=== PATIENT | female | born 1955 | race Caucasian/White ===

== ENCOUNTER 2020-08-31 00:21 | Outpatient (CLI) | payer OTHER, SELFPAY ==
[2020-08-31 19:18] LABS: SARS-CoV-2 RNA PCR Negative
== END 2020-08-31 00:22 | disposition home or self-care (01) ==
LOC: ANHCOVIDDT 00:21
PROVIDERS: Family Provider Family Medicine; PCP Family Medicine; Visit Provider Internal Medicine Gastroenterology
DX: Z01.812 Encounter for preprocedural laboratory examination (principal); Z20.822 Contact with and (suspected) exposure to COVID-19
CPT/HCPCS: C9803; U0003; U0005

== ENCOUNTER 2020-09-03 01:56 | Day surgery (SDC) | payer OTHER, SELFPAY ==
[2020-08-24 10:51] VITALS: BMI 26.9
[2020-09-03 10:14] VITALS: BP 147/94; PULSE 86; RESP 18; TEMP 36.5; O2SAT 99; BMI 28.0
[2020-09-03] MEDS: LACTATED RINGERS 1,000 ML 150 ML IV CONT (10:24)
--- NOTE | 2020-09-03 10:58 | WPDANESEPPF ---
Anes - Initial Pre Proc Eval Procedure: Operation Date: 09/03/20 11:30 Proposed Procedures p Screening Colonoscopy - Oscar Orr MD Date/Time: 09/03/20 10:58 Surgeon: Oscar Orr MD Pre Op Diagnosis: neoplasm screening Patient Data Age: 65 Gender: F Height: 5 ft 3 in Weight: 72 kg Last Vital Signs Temp 97.7 F 09/03/20 10:14 Pulse 86 09/03/20 10:14 Resp 18 09/03/20 10:14 BP 147/94 H 09/03/20 10:14 Pulse Ox 99 09/03/20 10:14 Allergies Allergy/AdvReac Type Severity Reaction Status Date / Time No Known Allergies Allergy Verified 09/03/20 10:14 Home Medications Medication Instructions Recorded Confirmed Type sodium,potassium,mag sulfates See Rx Instructions .ROUTE 08/20/20 Rx [Suprep Bowel Prep Kit] .COMPLEX #1 ml losartan 100 mg PO DAILY 08/24/20 09/03/20 History Patient hx anesthesia problems: none Family hx anesthesia problems: none [facility] Past Medical History Medical History (Updated 09/03/20 @ 10:52 by Hilton Barroso MD) Hypertension Social History Social History Smoking packs per day: 1 Smoking cigarettes per day: 20.0 Years smoked: 47 Smoking pack-years: 47.00 Smoking status: Current every day smoker Tobacco type: cigarettes Alcohol intake: never Living arrangements: with family Spiritual care concerns: No Anes - Eval Final PreProcedure Day of Procedure 09/03/20 10:58 Patient weight: normal Heart: regular rate and rhythm Lungs: clear to auscultation Airway: Mallampati scale class II Neurological: alert and oriented Last oral intake: >/= 8 hours ASA classification: II Emergent: no Anesthetic plan: proceed Anesthesia type and monitoring: general GIVS and standard monitoring Informed Consent: The patient's anesthetic plan and its attendant risks and benefits were discussed with the patient/family/POA. Questions were solicited and answers provided to the satisfaction of the patient/family/POA.
--- NOTE | 2020-09-03 10:59 | PM.HPGS ---
History of Present Illness History of Present Illness Consent: Risks, benefits, and alternatives have been discussed and questions answered. Patient agrees to proceed with procedure. Chief complaint: neoplasm screening Narrative: Analisa Sinclair is a 65 year old female here for first screening colonoscopy Review of Systems Constitutional: Constitutional: Denies headache(s) and Denies weakness Eyes: Eyes: Denies blurry vision ENT: Reports Normal hearing present, Denies headache(s) and Denies neck pain Cardiovascular: Cardiovascular: Denies chest pain and Denies dyspnea Respiratory: Respiratory: Denies dyspnea Gastrointestinal: Gastrointestinal: Reports no additional gastrointestinal complaints Genitourinary: Genitourinary: Denies dysuria Musculoskeletal: Musculoskeletal: Denies neck pain Integumentary/Breasts: Skin/Breast: Denies dry skin Neurologic: Reports Normal hearing present, Denies headache(s) and Denies weakness Psychiatric: Psychiatric: Denies anxiety Endocrine: Endocrine: Denies change in body appearance Hematologic/Lymphatic: Hematologic/Lymphatic: Denies easy bleeding Allergic/Immunologic: Allergic/Immunologic: Denies urticaria COUNTS INCLUDE 234 BEDS AT [facility] Past Medical History Medical History (Updated 09/03/20 @ 11:00 by Oscar Orr MD) Colon cancer screening Hypertension Social History Social History Smoking packs per day: 1 Smoking cigarettes per day: 20.0 Years smoked: 47 Smoking pack-years: 47.00 Smoking status: Current every day smoker Tobacco type: cigarettes Alcohol intake: never Living arrangements: with family Spiritual care concerns: No Meds Home Medications and Allergies Home Medications Medication Instructions Recorded Confirmed Type sodium,potassium,mag sulfates See Rx Instructions .ROUTE 08/20/20 Rx [Suprep Bowel Prep Kit] .COMPLEX #1 ml losartan 100 mg PO DAILY 08/24/20 09/03/20 History Allergies Allergy/AdvReac Type Severity Reaction Status Date / Time No Known Allergies Allergy Verified 09/03/20 10:14 Vital Signs Vital Signs - 24 hr 09/03/20 10:14 Temperature 97.7 F Pulse Rate 86 Respiratory Rate 18 Blood Pressure 147/94 H Pulse Oximetry 99 Exam Const: General: comfortable and no acute distress HENMT: General nose exam: Normal nares present Eyes: General: appearance normal, both eyes and all related structures Neck: Neck: no JVD Resp: Auscultation: clear to auscultation bilaterally Cardio: Rate: regular rate Rhythm: regular rhythm GI: Inspection: non-distended GI Palp: Yes Soft to palpation Skin: General skin exam: normal color Neuro: General: gait normal Speech: normal speech Extrem: General: normal to inspection Psych: Mental Status: mental status grossly normal Assessment and Plan Assessment and plan (1) Colon cancer screening: Code(s): Z12.11 - Encounter for screening for malignant neoplasm of colon Status: Acute Assessment and Plan: will proceed with colonoscopy
[2020-09-03 11:23] VITALS: BP 111/71; PULSE 71; RESP 26; O2SAT 97
[2020-09-03 11:33] VITALS: BP 129/84; PULSE 71; RESP 22; O2SAT 95
[2020-09-03 11:43] VITALS: BP 135/82; PULSE 68; RESP 21; O2SAT 99
== END 2020-09-03 11:50 | disposition home or self-care (01) ==
PROVIDERS: Family Provider Family Medicine; PCP Family Medicine; Visit Provider Internal Medicine Gastroenterology
PROC: 0DJD8ZZ Inspection of Lower Intestinal Tract, Via Natural or Artificial Opening Endoscopic (ICD-10-PCS; CPT 45378; principal; 2020-09-03 11:30)
DX: Z12.11 Encounter for screening for malignant neoplasm of colon (principal); D12.0 Benign neoplasm of cecum; D12.3 Benign neoplasm of transverse colon; K57.30 Diverticulosis of large intestine without perforation or abscess without bleeding; K64.8 Other hemorrhoids; I10 Essential (primary) hypertension; F17.210 Nicotine dependence, cigarettes, uncomplicated
CPT/HCPCS: 45380; 45385; 88305; C9803; J2704; J7120; U0003; U0005

== ENCOUNTER 2022-07-09 16:32 | Emergency (ER) | payer MEDICARE, SELFPAY ==
[2022-07-09 17:22] VITALS: BP 183/98; PULSE 86; RESP 18; TEMP 36.6; O2SAT 100
--- NOTE | 2022-07-09 17:35 | ED.URI ---
HPI - URI/Sore Throat General Stated Complaint: Headache,Ears Irritation, Cough Time Seen by Provider: 07/09/22 17:35 Source: patient Mode of arrival: ambulatory Limitations: no limitations History of Present Illness HPI Narrative: 67-year-old female presents with complaint of sinus congestion, cough for several weeks. Reports that she is now having right ear pain. Takes Eun on when she remembers. Is not taking any other medications right now to treat symptoms. Afebrile. Denies chest pain and shortness of breath. All systems reviewed and negative except as noted above. Related Data Home Medications Medication Instructions Recorded Confirmed losartan 100 mg tablet 100 mg PO DAILY 08/24/20 09/19/21 Allergies Allergy/AdvReac Type Severity Reaction Status Date / Time No Known Allergies Allergy Verified 09/19/21 14:31 Review of Systems Review of Systems: CONSTITUTIONAL: Denies fever, chills, or sweats. EYES: Denies visual changes, redness, or discharge. ENT: Reports rhinorrhea, congestion, sore throat, right ear pain. CARDIOVASCULAR: Denies chest pain, palpitations, or edema. RESPIRATORY: Reports cough. Denies dyspnea. GASTROINTESTINAL: Denies abdominal pain, nausea, vomiting, or diarrhea. GENITOURINARY: Denies dysuria or hematuria. SKIN: Denies rash or itching. MUSCULOSKELETAL: Denies back pain, joint pain, or myalgia. NEUROLOGIC: Denies headache, numbness, or weakness. PSYCHIATRIC: Denies anxiety or depression. All other systems reviewed are negative, except as documented in HPI. [facility] Past Medical History Medical History Colon cancer screening Hypertension Family History Family History Father Diabetes mellitus Hypertension Heart disease Social History Social History Smoking packs per day: 1 Smoking cigarettes per day: 20.0 Years smoked: 47 Smoking pack-years: 47.00 Smoking status: Current every day smoker Tobacco type: cigarettes Alcohol intake: never Substance use: never Substance use type: does not use Spiritual care concerns: No Comments At time of signature, agree with nursing past medical, surgical, social and family history. There is no relevant family history pertinent to the presenting complaint. Exam Narrative: GENERAL: This is a well-nourished, well-developed patient, in no apparent distress. HEAD: normocephalic, atraumatic. EYES: PERRL. Sclera clear/white. Vision is grossly intact. EARS: External ears normal, auditory canals clear and without drainage, right TM is erythematous, yellow purulence noted. NOSE: External nose normal with Clear nasal drainage. THROAT: Mucous membranes moist, posterior pharynx clear. NECK: Neck supple, non-tender without lymphadenopathy, masses or thyromegaly. CARDIOVASCULAR: Regular rate and rhythm without murmurs, gallops, or rubs. RESPIRATORY: Clear to auscultation. Breath sounds equal bilaterally. No wheezes, rales, or rhonchi. SKIN: warm, Dry, intact with no suspicious lesions or rash, good texture and turgor. NEURO: awake, alert, and oriented to person, place and time. There were no obvious focal neurologic abnormalities. EXTREMITIES: No joint tenderness, effusion, or edema noted. Course Course Level of Care: Express Care Visit Vital Signs Vital signs: Reviewed MDM - URI/Sore Throat MDM Narrative Medical decision making narrative: Patient is aware of diagnosis, understands and agrees to treatment plan. Anticipatory guidance given. Patient agrees to follow-up as directed and is aware of reasons to seek care at the emergency department. Portions of this record may have been created with voice recognition software Discharge Plan Discharge Clinical Impression: Acute bronchitis, Acute otitis media, right Patient Disposi
== END 2022-07-09 17:51 | disposition home or self-care (01) ==
PROVIDERS: Emergency Provider Nurse Practitioner Family
DX: J20.9 Acute bronchitis, unspecified (principal); H66.91 Otitis media, unspecified, right ear; F17.210 Nicotine dependence, cigarettes, uncomplicated; I10 Essential (primary) hypertension
CPT/HCPCS: 99213; G0463

== ENCOUNTER 2022-10-18 07:41 | Outpatient (CLI) | payer MEDICARE, SELFPAY ==
[2022-10-18 08:44] LABS: Basophils Percent Auto 0.7 % (0.2-1.2); Eosinophils Absolute Auto 0.1 K/mm3 (0-0.3); Eosinophils Percent Auto 0.8 % (0-4.4); Hematocrit 39.8 % (37.0-47.0); Hemoglobin 13.9 g/dL (12.0-15.0); Immature Granulocyte Absolute 0.02 K/mm3 (0.00-0.031); Immature Granulocyte Percent A 0.3 % (0-0.5); Lymphocytes Absolute Auto 1.64 K/mm3 (0.9-3.2); Lymphocytes Percent Auto 27.3 % (18.3-44.2); Mean Corpuscular HGB Conc 34.9 g/dl (32-36); Mean Corpuscular Hemoglobin 31.2 pg (26-34); Mean Corpuscular Volume 89.4 fl (80-100); Mean Platelet Volume 8.8 fl (7.4-10.4); Monocytes Absolute Auto 0.3 K/mm3 (0.1-0.6); Monocytes Percent Auto 5.7 % (2.6-8.5); Neutrophils Absolute Auto 3.9 K/mm3 (1.3-6.7); Neutrophils Percent Auto 65.2 % (45.5-73.1); Platelet Count Result 276 k/mm3 (150-375); Red Blood Count 4.45 M/mm3 (4.2-5.4); Red Cell Distribution Width 12.5 % (11.5-14.5)
[2022-10-18 09:13] LABS: Anion Gap 8 mmol/L (8-16); Blood Urea Nitrogen 13 mg/dL (7-17); Calcium 9.6 mg/dL (8.4-10.2); Carbon Dioxide 23 mmol/L (22-30); Chloride 107 mmol/L (98-107); Cholesterol 258 mg/dL (0-200); Estimated Glomerular Filt Rate > 60; Glucose 96 mg/dL (65-110); HDL Direct 70 mg/dL; Sodium 138 mmol/L (137-145); Triglycerides 93 mg/dL (<150)
[2022-10-18 09:24] LABS: LDL Cholesterol Direct 148 mg/dL
== END 2022-10-18 07:42 | disposition home or self-care (01) ==
PROVIDERS: Visit Provider Family Medicine
DX: Z00.00 Encounter for general adult medical examination without abnormal findings (principal); Z13.1 Encounter for screening for diabetes mellitus; Z13.220 Encounter for screening for lipoid disorders; I10 Essential (primary) hypertension; E55.9 Vitamin D deficiency, unspecified; R53.83 Other fatigue
CPT/HCPCS: 36415; 80048; 80061; 82306; 84443; 85025

== ENCOUNTER 2022-10-23 15:26 | Outpatient (CLI) | payer MEDICARE, SELFPAY ==
--- NOTE | ~2022-10-23 | CT_ITS ---
EXAMINATION:CT lung screening DATE: 10/23/2022 15:54 INDICATION: Nicotine dependence. Current smoker with 24.5 pack year history. TECHNIQUE: Computed tomography (CT) of the chest was performed without intravenous contrast. Automate d exposure control and iterative reconstruction technique were employed. The dose-length product (DLP ) was 98.70 mGy-cm. COMPARISON: None. FINDINGS: There is mild emphysema. There is a 2 mm nodule in right upper lobe. There is a 2 mm nodule in left upper lobe. There is mild atelectasis bilaterally. No pleural effusion. The heart size is no rmal. No pericardial effusion. There is severe thoracic spondylosis. IMPRESSION: 1. Lung-RADS category 2: Benign appearance or behavior. Continue annual screening with noncontrast lo w-dose chest CT in 12 months. Reviewed, dictated and finalized at location A. IMPRESSION: 1. Lung-RADS category 2: Benign appearance or behavior. Continue annual screeni ng with noncontrast low-dose chest CT in 12 months.
== END 2022-10-23 15:27 | disposition home or self-care (01) ==
PROVIDERS: PCP Family Medicine; Visit Provider Family Medicine
DX: F17.210 Nicotine dependence, cigarettes, uncomplicated (principal)
CPT/HCPCS: 71271

== ENCOUNTER 2023-07-09 09:43 | Emergency (ER) | payer MEDICARE, SELFPAY ==
[2023-07-09 09:56] VITALS: BP 154/83; PULSE 83; RESP 18; TEMP 36.7; O2SAT 99
--- NOTE | 2023-07-09 10:20 | ED.URI ---
HPI - URI/Sore Throat General Chief Complaint: Upper Respiratory Infection Stated Complaint: bilateral ear discomfort,cough,congestion Time Seen by Provider: 07/09/23 09:46 Source: patient Mode of arrival: ambulatory Limitations: no limitations History of Present Illness HPI Narrative: 68-year-old female presents to [facility] with complaints of bilateral ear pain and pressure, nonproductive cough, sinus pressure and nasal congestion for the past 4 weeks. Patient has been taking [id number] cough medication, Flonase and Eun with minimal relief. Patient reports that her has similar symptoms and was recently diagnosed with bronchitis. Patient denies shortness of breath, wheezing, nausea, vomiting or diarrhea. Patient is a smoker. Patient denies recent travel. MD elicited complaint: cough, rhinorrhea and nasal congestion Onset (ago): week(s) (4) Context: sick contacts Treatments prior to arrival: cold medicine Related Data Home Medications Medication Instructions Recorded Confirmed losartan 100 mg tablet 100 mg PO DAILY 08/24/20 07/09/23 Allergies Allergy/AdvReac Type Severity Reaction Status Date / Time No Known Allergies Allergy Verified 07/09/23 09:58 Review of Systems Constitutional: Constitutional: Denies chills, Denies fatigue, Denies fever(s) and Denies weakness ENT: Denies vertigo, Denies dizziness, Reports nasal congestion and Denies sore throat Respiratory: Respiratory: Denies chest congestion, Reports cough, Denies dyspnea and Denies wheezing Gastrointestinal: Gastrointestinal: Denies diarrhea, Denies nausea and Denies vomiting Integumentary/Breasts: Skin/Breast: Denies rash Neurologic: Denies dizziness, Denies syncope and Denies headache(s) [facility] Past Medical History Medical History Colon cancer screening Hypertension Family History Family History Father Diabetes mellitus Hypertension Heart disease Social History Social History Smoking packs per day: 1 Smoking cigarettes per day: 20.0 Years smoked: 47 Smoking pack-years: 47.00 Smoking status: Current every day smoker Tobacco type: cigarettes Alcohol intake: never Substance use: never Substance use type: does not use Living arrangements: with family Spiritual care concerns: No Comments At time of signature, I agree with nursing past medical, surgical, social and family history. There is no relevant family history pertinent to the presenting complaint. Exam Const: General: healthy appearing and no acute distress Nutritional Appearance: well nourished Orientation/consciousness: patient oriented x3 Limitations: no limitations HENMT: Head: normal to inspection Ears: external ears normal, EAC's normal and TM abnormal wth effusion serous Mouth: Yes Normal oral and palatal mucosa present and Yes moist mucous membranes Teeth and gingiva: dentition normal Throat: posterior oropharynx normal and uvula midline Other: Mild bilateral nasal congestion noted Eyes: Conjunctivae: conjunctivae normal Neck: Neck: normal visual inspection Resp: Effort & Inspection: normal respiratory effort and not labored Auscultation: clear to auscultation bilaterally, no crackles, no rales, no rhonchi and no wheezes Cardio: Rate: regular rate Rhythm: regular rhythm Heart sounds: no murmurs Skin: General skin exam: normal color Rashes: no rashes Wounds: no wounds Neuro: General: patient oriented x3 Speech: normal speech Gait exam (Neuro): Normal gait present Psych: Affect: normal affect Attitude: cooperative Course Course Level of Care: Express Care Visit Vital Signs Vital signs: Vital Signs Temperature 36.7 C 07/09/23 09:56 Pulse Rate 83 07/09/23 09:56 Respiratory Rate 18 07/09/23 09:56 Blood Pressure 154/83 H
== END 2023-07-09 10:26 | disposition home or self-care (01) ==
PROVIDERS: Emergency Provider Nurse Practitioner Family; PCP Family Medicine
DX: J32.9 Chronic sinusitis, unspecified (principal); I10 Essential (primary) hypertension
CPT/HCPCS: 99213; G0463

== ENCOUNTER 2023-11-22 13:18 | Outpatient (CLI) | payer MEDICARE, SELFPAY ==
--- NOTE | ~2023-11-22 | MM_ITS ---
EXAMINATION: MM screening xiang BI w ian HISTORY: Screening mammogram TECHNIQUE: Craniocaudal and mediolateral oblique 3-D tomosynthesis images were obtained and synthetic 2-D images were generated. CAD analysis was submitted and interpreted. COMPARISON: No prior mammogram is available for comparison at this institution. BREAST PARENCHYMAL COMPOSITION: There are scattered areas of fibroglandular density. FINDINGS: There is no evidence of suspicious mass, calcification, or architectural distortion to sugg est malignancy in either breast. There has been no suspicious interval change. IMPRESSION: 1. No mammographic evidence of malignancy. 2. Recommend routine screening mammography in one year. BI-RADS Category 1: Negative Reviewed, dictated and finalized at location A.
== END 2023-11-22 13:19 ==
LOC: MICIMG 13:19
PROVIDERS: PCP Family Medicine; Visit Provider Family Medicine
DX: Z12.31 Encounter for screening mammogram for malignant neoplasm of breast (principal)
CPT/HCPCS: 77063; 77067

== ENCOUNTER 2023-11-23 09:31 | Outpatient (CLI) | payer MEDICARE, SELFPAY ==
--- NOTE | ~2023-11-23 | CT_ITS ---
CT Scan of the Chest without Contrast: Clinical Indication: Lung cancer screening, nicotine dependence Technique: Contiguous sections were acquired throughout the chest without intravenous contrast. Dose reduction technique was used on this scan by utilizing automated exposure control and iterative recon struction technique. The dose-length product (DLP) was 88.89 mGy-cm. COMPARISON: 10/23/2022 Findings: There is no evidence of any significant mediastinal, hilar or axillary lymphadenopathy. The mediastin al soft tissues appear normal. There is no evidence of pleural or pericardial effusion. The lungs are clear. No pulmonary nodules or infiltrates are noted. Images through the upper abdomen reveal no abnormalities. Impression: Lung RADS 1: Negative. 12 month follow-up screening CT advised. Reviewed, dictated and finalized at location . Impression: Lung RADS 1: Negative. 12 month follow-up screening CT advised.
== END 2023-11-23 09:32 | disposition home or self-care (01) ==
PROVIDERS: PCP Family Medicine; Visit Provider Family Medicine
DX: Z12.2 Encounter for screening for malignant neoplasm of respiratory organs (principal); Z87.891 Personal history of nicotine dependence
CPT/HCPCS: 71271

== ENCOUNTER 2024-11-24 13:00 | Outpatient (CLI) | payer MEDICARE, SELFPAY ==
--- NOTE | ~2024-11-24 | CT_ITS ---
CT Scan of the Chest without Contrast: Clinical Indication: Lung cancer screening, nicotine dependence Technique: Contiguous sections were acquired throughout the chest without intravenous contrast. Dose reduction technique was used on this scan by utilizing automated exposure control and iterative recon struction technique. The dose-length product (DLP) was 100.99 mGy-cm. COMPARISON: 11/23/2023 Findings: There is no evidence of any significant mediastinal, hilar or axillary lymphadenopathy. The mediastin al soft tissues appear normal. There is no evidence of pleural or pericardial effusion. No pulmonary nodule evident. There is linear scarring in the lingula. Minimal emphysema. Images through the upper abdomen reveal no abnormalities. Degenerative spondylosis of the thoracic sp ine noted. Impression: Lung RADS 1: Negative. 12 month follow-up screening CT advised. Reviewed, dictated and finalized at [facility]. Impression: Lung RADS 1: Negative. 12 month follow-up screening CT advised.
--- OUTSIDE RECORDS SUMMARY | 2024-11-24 14:41 | XMS_ITS | Encounter Summary ---
Author Organization [facility] Address [address] [place] [address] Care Team Providers Care Manager Environmental Affairs Name Role Phone Unavailable Primary Care Provider Unavailabl e Encounter Details Date Type Department Care Team (Late st Contact Info) Description 10/14/2008 Outpatient Historical [facility] Other Screening Mammogram Social History Tobacco Use Types Packs/Day Years Used Date Smoking Tobacco: Never Assessed Comments Unknown Sex and Gender Information Value Date Recorded Sex Assigned at Not on file Legal Sex Female 5:43 AM [employer] Gender Identity Not on file Sexual Orientation Not on file documented as of this encounter Plan of Treatment Not on file documented as of this encounter Procedures Procedure Name Priority Date/Time Associated Diagnosis Comments MAMMO SCREENING BILAT Routine 10/14/2008 1:26 PM CDT documented in this encounter Results * MAMMO SCREENING BILAT (10/14/2008 1:26 PM CDT) Anatomical Region Laterality Modality Breast Bilateral Other 10/14/2008 1:26 PM CDT Narrative 10/16/2008 8:37 AM CDT [address] [address] Admit Date: 10/14/2008 ANALISA SINCLAIR Sex: F Admit Prov: Date: 1955 Primary Care Prov: CMRN: [id number] [facility] [address] [place] [address] IMAGING SERVICES Ordering Prov: CHAU CHUNG Accession Number: [id number] Interpretation BILATERAL SCREENING MAMMOGRAM 10/14/08 Reason for this examination: Annual screening study. Findings: The parenchyma is moderately dense bilaterally. There is no mass, malignant calcification, lymphadenopathy or other sign of malignancy. Summary: No mammographic evidence of malignancy. Overall assessment: BIRADS category 1 - Negative Assessment BIRADS: 1-Negative Recommendation: Normal interval follow-up Dictated by: MARC OLSEN Electronically signed by: MARC OLSEN 10/16/2008 08:36 Transcribed: 10/16/2008 07:26 AMK Procedure Note Marc Olsen MD - 10/16/2008 [facility] [address], [place] [address] Admit Date: 10/14/2008 ANALISA SINCLAIR Sex: F Admit Prov: Date: 1955 Primary Care Prov: CMRN: [id number] [facility] SSN: [id number] IMAGING SERVICES Ordering Prov: CHAU CHUNG Interpretation BILATERAL SCREENING MAMMOGRAM 10/14/08 Reason for this examination: Annual screening study. Findings: The parenchyma is moderately dense bilaterally. There isno mass, malignant calcification, lymphadenopathy or other sign ofmalignancy. Summary: No mammographic evidence of malignancy. Overall assessment: BIRADS category 1 - Negative Assessment BIRADS: 1-Negative Recommendation: Normal interval follow-up Dictated by: MARC OLSEN Electronically signed by: MARC OLSEN 10/16/2008 08:36 Transcribed: 10/16/2008 07:26 [facility]K [facility] Final Result documented in this encounter Visit Diagnoses Diagnosis Other screening mammogram documented in this encounter
--- OUTSIDE RECORDS SUMMARY | 2024-11-24 14:41 | XMS_ITS | Data Portability ---
Author Organization [facility], Main Office Address [address] [place] [address] Assessment No assessment recorded. Plan of Treatment Reminders Order Date Submit Date Provider Last Modified By Organization Details Last Modified Time Details Appointments None recorded. Lab magnesium, serum or plasma [email or web address] (Lab), [address] [place], [address], 4 07:56:41 CMP, serum or plasma 2023 024 [facility] (Lab), [address] [place], [address], 4 21:25:29 lipid panel, serum 2023 024 YASSINE Not available 4 20:56:45 hepatic function panel, serum 2023 YASSINE Not available 4 20:56:50 BMP, serum or plasma 2023 024 YASSINE Not available 4 20:56:40 vitamin D3, 25-hydroxy, serum 2023 YASSINE Not available 4 10:20:40 CBC w/ auto diff 2023 024 YASSINE Not available 4 19:45:20 TSH, serum or plasma 2023 024 YASSINE Not available 4 21:20:04 T4, free, serum 2023 WABASSO Not available 21:09:56 Referral None recorded. Procedures None recorded. Surgeries None recorded. Imaging LDCT, chest, for lung cancer screening - *Please call pt to schedule* 2023 024 [facility] (Imaging), [address] [facility] [address] [place] [address], [phone], 4 12:30:47 DEXA - *Please call pt to schedule* [email or web address] [place] [address] (Imaging), [address] [facility] [address], [place], [address], 4 09:52:09 Medication Orders prednisone 20 mg tablet 2023 [facility] #[id number], [address] [facility], [place], [place], [id number], 4 11:04:14 amoxicillin 875 mg-potassiu m clavulanate 125 mg tablet 2023 024 [facility] #73200, [address] [facility], [place], [place], [id number], 4 11:04:13 losartan 100 mg-hydrochl orothiazide 25 mg tablet 2023 [facility] #82988, [address] [facility], [place], [place], [id number], 4 16:16:17 Patient TargetsNo targets recorded. Patient Instructions Encounter Date Encounter Id Patient Instructions Last Modified By Organization Details Last Modified Time 11/13/2023 [id number] [facility] Plan and Screening Recommendations Advance Directives - Do you have one? Advance Directives - Do we have your advance directive on file in your health record? Primary Prevention/Interven tion (prevents or decreases the chance of common diseases from occurring) Smoking Risk: Alcohol Misuse Screening: Weight: Physical activity: Nutrition: Fall Risk (screened today): Vaccines Pneumococcal: Influenza: Your next one in the fall of this year Chronic Disease Risks Stroke: I have no recommendations Act ced diagnosis, Continue current treatment plan Heart Attack: I have no recommendations Act ced diagnosis, Continue current treatment plan Clogging of the Arteries: I have no recommendations Act ecd diagnosis, Continue current treatment plan Diabetes: Active diagnosis, Continue current treatment plan Secondary Prevention/Interven tion (detects treatable diseases before they may cause symptoms, disability, or ) Breast Cancer Screening with mammogram: Cervical/Uterine/Ov tolu Cancer Screening: Osteoporosis Screening: Date Screening Last Performed: Colon Cancer Screening: Date Screening Last Performed: Eye Disease Screening: Dementia Risk: Depression Screening: Active diagnosis, Continue current treatment plan Not available 11/13/2023 11:41:56 Reason for Referral None Reported. Results Created Date Observation Date Name Description Value Unit Range Abnormal Flag Note LastModifiedBy Organization Detail LastModifiedTime 11/13/19 24 11/13/2023 CBC/C OMPLE TE BLD COUNT W/DIF F white blood cells 6.8 x10'3 /uL 4.2-10 .8 Not Available [facility] (Lab) [address] [place], [address], 11/13/2023 19:45:20 11/13/19 24 11/13/2023 CBC/C OMPLE TE BLD COUNT W/DIF F red blood cells 4.52 x10'6 /uL 3.80-5 .20 Not Available [facility] (Lab) [address] [place], [address], 11/13/2023 19:45:20 11/13/19 24 11/13/2023 CBC/C OMPLE TE BLD COUNT W/DIF F hemoglobin 14.3 g/dL 12.0-1 5.6 Not Available [facility] (Lab) [address] [place], [address], 11/13/2023 19:45:20 11/13/19 24 11/13/2023 CBC/C OMPLE TE BLD COUNT W/DIF F hematocrit 42.2 % 35.7-4 5.7 Not Available [facility] (Lab) [address] [place], [address], 11/13/2023 19:45:20 11/13/19 24 11/13/2023 CBC/C OMPLE TE BLD COUNT W/DIF F mean red cell volume 93.4 fL 82.0-9 9.0 Not Available [facility] (Lab) [address] [place], [address], 11/13/2023 19:45:20 11/13/19 24 11/13/2023 CBC/C OMPLE TE BLD COUNT W/DIF F mean red cell hemoglobin 31.6 pg 27.0-3 3.0 Not Available [facility] (Lab) [address] [place], [address], 11/13/2023 19:45:20 11/13/19 24 11/13/2023 CBC/C OMPLE TE BLD COUNT W/DIF F mean RBC HGB concentratio n 33.9 g/dL 31.0-3 6.0 Not Available [facility] (Lab) [address] [place], [address], 11/13/2023 19:45:20 11/13/19 24 11/13/2023 CBC/C OMPLE TE BLD COUNT W/DIF F red cell distribution width 12.8 % 11.8-1 5.5 Not Available [facility] (Lab) [address] [place], [address], 11/13/2023 19:45:20 11/13/19 24 11/13/2023 CBC/C OMPLE TE BLD COUNT W/DIF F platelets 310 x10'3 /uL 150-40 0 Not Available [facility] (Lab) [address] [place], [address], 11/13/2023 19:45:20 11/13/19 24 11/13/2023 CBC/C OMPLE TE BLD COUNT W/DIF F mean platelet volume 9.5 fL 9.0-12 .4 Not Available [facility] (Lab) [address] [place], [address], 11/13/2023 19:45:20 11/13/19 24 11/13/2023 CBC/C OMPLE TE BLD COUNT W/DIF F neutrophils 64.8 % 39.0-7 2.0 Not Available [facility] (Lab) [address] [place], [address], 11/13/2023 19:45:20 11/13/19 24 11/13/2023 CBC/C OMPLE TE BLD COUNT W/DIF F lymphocytes 27.5 % 16.0-4 7.0 Not Available [facility] (Lab) [address] [place], [address], 11/13/2023 19:45:20 11/13/19 24 11/13/2023 CBC/C OMPLE TE BLD COUNT W/DIF F monocytes 5.5 % 5.0-12 .0 Not Available [facility] (Lab) [address] [place], [address], 11/13/2023 19:45:20 11/13/19 24 11/13/2023 CBC/C OMPLE TE BLD COUNT W/DIF F eosinophils 1.2 % 1.0-7. 0 Not Available [facility] (Lab) [address] [place], [address], 11/13/2023 19:45:20 11/13/19 24 11/13/2023 CBC/C OMPLE TE BLD COUNT W/DIF F basophils 0.6 % 0.0-2. 0 Not Available [facility] (Lab) [address] [place], [address], 11/13/2023 19:45:20 11/13/19 24 11/13/2023 CBC/C OMPLE TE BLD COUNT W/DIF F immature granulocytes 0.4 % 0.00-0 .50 Not Available [facility] (Lab) [address] [place], [address], 11/13/2023 19:45:20 11/13/19 24 11/13/2023 CBC/C OMPLE TE BLD COUNT W/DIF F neutrophils, absolute count 4.39 x10'3 /uL 1.5-8. 0 Not Available [facility] (Lab) [address] [place], [address], 11/13/2023 19:45:20 11/13/19 24 11/13/2023 CBC/C OMPLE TE BLD COUNT W/DIF F lymphocytes, absolute count 1.86 x10'3 /uL 1.07-3 .43 Not Available [facility] (Lab) [address] [place], [address], 11/13/2023 19:45:20 11/13/19 24 11/13/2023 CBC/C OMPLE TE BLD COUNT W/DIF F monocytes, absolute count 0.37 x10'3 /uL 0.29-0 .99 Not Available [facility] (Lab) [address] [place], [address], 11/13/2023 19:45:20 11/13/19 24 11/13/2023 CBC/C OMPLE TE BLD COUNT W/DIF F eosinophils, absolute count 0.08 x10'3 /uL 0.02-0 .53 Not Available [facility] (Lab) [address] [place], [address], 11/13/2023 19:45:20 11/13/19 24 11/13/2023 CBC/C OMPLE TE BLD COUNT W/DIF F basophils, absolute count 0.04 x10'3 /uL 0.01-0 .08 Not Available [facility] (Lab) [address] [place], [address], 11/13/2023 19:45:20 11/13/19 24 11/13/2023 CBC/C OMPLE TE BLD COUNT W/DIF F immature granulocytes ,absolute 0.03 x10'3 /uL 0.00-0 .05 Not Available [facility] (Lab) [address] [place], [address], 11/13/2023 19:45:20 11/13/19 24 11/13/2023 CBC/C OMPLE TE BLD COUNT W/DIF F nucleated red blood cells 0.0 % -0 Not Available [facility] (Lab) [address] [place], [address], 11/13/2023 19:45:20 11/13/19 24 11/13/2023 CBC/C OMPLE TE BLD COUNT W/DIF F NRBC# 0.00 x10'3 /uL Not Available [facility] (Lab) [address] [place], [address], 11/13/2023 19:45:20 11/13/19 24 11/13/2023 BASIC METAB OLIC PANEL sodium 138 mmol/ L 137-14 5 Not Available [facility] (Lab) [address] [place], [address], 11/13/2023 20:56:40 11/13/19 24 11/13/2023 BASIC METAB OLIC PANEL potassium 4.0 mmol/ L 3.5-5. 1 Not Available [facility] (Lab) [address] [place], [address], 11/13/2023 20:56:40 11/13/19 24 11/13/2023 BASIC METAB OLIC PANEL chloride 111 mmol/ L 98-107 high Not Available [facility] (Lab) [address] [place], [address], 11/13/2023 20:56:40 11/13/19 24 11/13/2023 BASIC METAB OLIC PANEL carbon dioxide 20 mmol/ L 22-30 low Not Available [facility] (Lab) [address] [place], [address], 11/13/2023 20:56:40 11/13/19 24 11/13/2023 BASIC METAB OLIC PANEL anion gap 11.0 mmol/ L 14-22 low Not Available [facility] (Lab) [address] [place], [address], 11/13/2023 20:56:40 11/13/19 24 11/13/2023 BASIC METAB OLIC PANEL glucose 99 mg/dL 70-99 Not Available [facility] (Lab) [address] [place], [address], 11/13/2023 20:56:40 11/13/19 24 11/13/2023 BASIC METAB OLIC PANEL BUN 16 mg/dL 8-19 Not Available [facility] (Lab) [address] [place], [address], 11/13/2023 20:56:40 11/13/19 24 11/13/2023 BASIC METAB OLIC PANEL creatinine 0.67 mg/dL 0.66-1 .25 Not Available [facility] (Lab) [address] [place], [address], 11/13/2023 20:56:40 11/13/19 24 11/13/2023 BASIC METAB OLIC PANEL GFR >60 Refer ence Range : [place] ge GFR Healt hy Adult : >60 mL/mi n/1.7 3 m2 Chron ic Kidne y Disea se: 15-60 mL/mi n/1.7 3 m2 Kidne y Failu re: <15/m L/min /1.73 m2 www.n iddk. nih.g ov The MDRD study equat ion has not been valid ated in child kailey <18 years of age; pregn ant women ; the elder ly >85 years of age; or in some racia l or ethni c subgr oups, such as Hispa nics. Outsi de the valid ated saran eters , estim ated GFR is less accur ate, requi ring clini karen judgm ent on a case- by-ca se basis . Clini karen inter preta tion for other races and ages must be made by the clini hector. The MDRD study equat ion has not been valid ated for the evalu ation of serum creat inine relat ed to nutri blair l statu s or medic ation usage . For perso ns <18 years of age, a pedia tric GFR calcu lator is avail able on the [facility] websi te: https ://ww w.kid susi.o rg/pr ofess ional s/kdo qi/gf r_cal culat or Not Available [facility] (Lab) [address] [place], [address], 11/13/2023 20:56:40 11/13/19 24 11/13/2023 BASIC METAB OLIC PANEL calcium 9.8 mg/dL 8.4-10 .2 Not Available [facility] (Lab) [address] [place], [address], 11/13/2023 20:56:40 11/13/19 24 11/13/2023 LIPID PANEL cholesterol 246 mg/dL 140-19 9 high NIH SAMREEN NSUS RECOM MENDA TION FOR MAKENNA STERO L: ADULT CHILD LOW RISK: <200 <170 BORDE RLINE : <200- 239 ----- HIGH RISK: >240 >200 Not Available [facility] (Lab) [address] [place], [address], 11/13/2023 20:56:45 11/13/1911/13/2023 LIPID PANEL triglyceride s 136 mg/dL 0-150 NIH SAMREEN NSUS REPOR T RECOM MENDA TION FOR TRIGL YCERI SANTIAGO: ADULT CHILD LOW RISK: <150 ----- BODER LINE: 150-1 99 ----- HIGH RISK: >200 ----- Not Available [facility] (Lab) [address] [place], [address], 11/13/2023 20:56:45 11/13/19 24 11/13/2023 LIPID PANEL HDL cholesterol 80 mg/dL 40- Not Available [facility] (Lab) [address] [place], [address], 11/13/2023 20:56:45 11/13/19 24 11/13/2023 LIPID PANEL LDL cholesterol, calculated 139 mg/dL 0-130 high NIH SAMREEN NSUS REPOR T RECOM MENDA TIONS FOR LDL: ADULT CHILD LOW RISK <130 <110 (OPTI MAL LDL) <100 ----- BORDE RLINE : 130-1 59 ----- HIGH RISK: >160 >130 A TRIGL YCERI DE RESUL T >400 INVAL IDATE S THE CALCU LATIO N FOR LDL FRACT IONAT ION - THE LDL RESUL T WILL NOT BE REPOR GAURAV. Not Available [facility] (Lab) [address] [place], [address], 11/13/2023 20:56:45 11/13/19 24 11/13/2023 HEPAT IC/LI NATASHA PANEL alkaline phosphatase 60 U/L 38-126 Not Available [facility] (Lab) [address] [place], [address], 11/13/2023 20:56:50 11/13/19 24 11/13/2023 HEPAT IC/LI NATASHA PANEL alanine aminotransfe rase 17 U/L 0-35 Not Available [facility] (Lab) [address] [place], [address], 11/13/2023 20:56:50 11/13/19 24 11/13/2023 HEPAT IC/LI NATASHA PANEL aspartate aminotransfe rase 28 U/L 15-37 Not Available [facility] (Lab) [address] [place], [address], 11/13/2023 20:56:50 11/13/19 24 11/13/2023 HEPAT IC/LI NATASHA PANEL bilirubin, total 0.50 mg/dL 0.20-1 .30 Not Available [facility] (Lab) [address] [place], [address], 11/13/2023 20:56:50 11/13/19 24 11/13/2023 HEPAT IC/LI NATASHA PANEL bilirubin, conjugated (direct) 0.00 mg/dL 0.00-0 .30 Not Available [facility] (Lab) [address] [place], [address], 11/13/2023 20:56:50 11/13/19 24 11/13/2023 HEPAT IC/LI NATASHA PANEL biliurubin,u ncong. (indirect) 0.30 mg/dL 0.00-1 .1 Not Available [facility] (Lab) [address] [place], [address], 11/13/2023 20:56:50 11/13/19 24 11/13/2023 HEPAT IC/LI NATASHA PANEL total protein 7.2 g/dL 6.3-8. 2 Not Available [facility] (Lab) [address] [place], [address], 11/13/2023 20:56:50 11/13/19 24 11/13/2023 HEPAT IC/LI NATASHA PANEL albumin 4.4 g/dL 3.0-4. 4 Not Available [facility] (Lab) [address] [place], [address], 11/13/2023 20:56:50 11/13/19 24 11/13/2023 HEPAT IC/LI NATASHA PANEL globulin 2.8 g/dL 2.6-4. 2 Not Available [facility] (Lab) [address] [place], [address], 11/13/2023 20:56:50 11/13/19 24 11/13/2023 HEPAT IC/LI NATASHA PANEL A/G ratio 1.6 ratio 1.0-2. 0 Not Available [facility] (Lab) [address] [place], [address], 11/13/2023 20:56:50 11/13/1911/13/2023 T4 FREE free T4 0.75 NG/dL 0.78-2 .19 low Not Available [facility] (Lab) [address] [place], [address], 11/13/2023 21:09:56 11/13/19 24 11/13/2023 TSH thyroid-stim ulating hormone 5.200 uIU/m L 0.465- 4.680 high Not Available [facility] (Lab) [address] [place], [address], 11/13/2023 21:20:04 11/13/19 24 11/22/2023 25-HY DROXY VITAM IN D LCMS D2+D3 25-hydroxy, vitamin D 62 NG/mL Refer ence Range : All Ages: Targe t level s 30 - 100 Not Available [facility] (Lab) [address] [place], [address], 11/22/2023 10:12:24 11/13/19 24 11/22/2023 25-HY DROXY VITAM IN D LCMS D2+D3 25-hydroxy, vitamin D-2 <1.0 NG/mL This test was devel oped and its perfo rmanc e clyde cteri stics deter mined by [employer]. It has not been clear ed or appro adan by the Food and Drug Admin istra tion. Not Available [facility] (Lab) [address] [place], [address], 11/22/2023 10:12:24 11/13/19 24 11/22/2023 25-HY DROXY VITAM IN D LCMS D2+D3 25-hydroxy, vitamin D-3 62 NG/mL This test was devel oped and its perfo rmanc e clyde cteri stics deter mined by [facility]. It has not been clear ed or appro adan by the Food and Drug Admin istra tion. Perfo rmed at: ES [facility] [employer] [address] [place] [address] Lab Direc tor: Orlando meyers MD, Phone : [phone] Not Available [facility] (Lab) [address] [facility], [place], [address], 11/22/2023 10:12:24 10/25/19 23 10/23/2022 LDCT, chest , for lung cance r scree lencho No observ ation record ed. [email or web address] [place], [place] [address] [facility] [address], [place], [address], 10/24/2022 10:10:56 11/23/19 24 11/22/2023 MAMMO , scree lencho, digit al, bilat eral No observ ation record ed. [id number] [facility] [address], [place], [address], 12/03/2023 10:13:18 11/23/19 24 11/23/2023 LDCT, chest , for lung cance r scree lencho No observ ation record ed. [email or web address] [address], [place], [address], 12/03/2023 10:13:19 Result Notes None recorded. Problems Name Problem SNOMED Code Status Onset Date Resolution Date Notes Provider Name and Address Organization Details Recorded Time Hypertensive disorder 01217454 Active 2020 Not Available [facility] 3 00:49:03 Pain of hip region 55737741 Active Not Available [facility] 3 00:49:03 Smoker 71106408 Active 2023 Paris Cruz MD [address] [facility], [facility] [address], [place], [address] , [facility] [employer] [facility] 4 11:28:14 Essential hypertension 75383422 Active 2023 Paris Cruz MD [address], [place], [address] , [employer] [facility] [employer] 4 11:31:56 Vitamin D deficiency 31443501 Active 2023 Paris Cruz MD [address], [address], [place], [address] , [employer] [facility] [employer] 4 11:32:39 Hypothyroidism 87431858 Active 2023 Paris Cruz MD [address], [address], [place], [address] , [employer] 11:32:52 Hyperlipidemia 97894235 Active 2023 Paris Cruz MD [address], [address], [place], [address] , [employer] 11:34:12 Acute sinusitis 47206577 Active 2023 ZOILA Garza [address], [address], [place], [address] , [employer] 12:44:05 Problem Notes None recorded. Procedures Surgical History Date Name Laterality Status Provider Name and Address Organization Details Recorded Time 11/13/19 24 Medicare Wellness CPT Code, subsequent completed Amanda Richard RN [facility] [employer] [facility] [employer] 11/13/2023 11:07:22 09/03/19 21 colonoscopy completed Not Available [facility] 09/28/19 23 00:44:40 Imaging Results Imaging Date Name Status LastModified by Organiz ation Details LastModified Time 10/23/2022 LDCT, chest, for lung cancer screening completed [email or web address], [place], [address], 10/24/2022 10:10:56 11/22/2023 MAMMO, screening, digital, bilateral completed [email or web address] [facility] [address], [place], [address], 12/03/2023 10:13:18 11/23/2023 LDCT, chest, for lung cancer screening completed [email or web address] [facility] [address], [place], [address], 12/03/2023 10:13:19 Procedure Notes None recorded. Medical Equipment None Reported. Allergies No known drug allergies Medications Name Sig Start Date Stop Date Status Note LastModified by Organization Details LastModified Time amoxicillin 500 mg capsule TK ONE C PO TID 08/16 completed Not Available Not Available Not Available azithromyci n 250 mg tablet TAKE 2 TABLETS (500 MG) BY ORAL ROUTE ONCE DAILY FOR 1 DAY THEN 1 TABLET (250 MG) BY ORAL ROUTE ONCE DAILY FOR 4 DAYS active Not Available Not Available No t Available benzonatate 200 mg capsule TAKE 1 CAPSULE BY MOUTH THREE TIMES DAILY NEEDED FOR COUGH 08/08 completed Not Available Not Available Not Available prednisone 20 mg tablet TAKE 2 TABLETS BY MOUTH EVERY DAY FOR 5 DAYS active Not Available Not Available No t Available losartan 100 mg-hydrochl orothiazide 25 mg tablet TAKE 1 TABLET BY MOUTH EVERY DAY active Not Available Not Available No t Available amoxicillin 875 mg tablet TAKE 1 TABLET BY MOUTH EVERY 12 HOURS FOR 10 DAYS 08/08 completed Not Available Not Available Not Available methylpredn isolone 4 mg tablets in a dose pack FOLLOW PACKAGE DIRECTION S 08/08 completed Not Available Not Available Not Available albuterol sulfate HFA 90 mcg/actuati on aerosol inhaler INHALE 2 PUFFS BY MOUTH FOUR TIMES DAILY NEEDED FOR SHORTNESS OF BREATH OR WHEEZING 08/08 completed Not Available Not Available Not Available losartan 100 mg tablet TAKE 1 TABLET BY MOUTH EVERY DAY active Not Available Not Available No t Available fluticasone propionate 50 mcg/actuati on nasal spray,suspe nsion SHAKE LIQUID AND USE 2 SPRAYS IN EACH NOSTRIL TWICE DAILY 11/12 completed Not Available Not Available Not Available amoxicillin 875 mg-potassiu m clavulanate 125 mg tablet TAKE 1 TABLET BY MOUTH EVERY 12 HOURS FOR 7 DAYS active Not Available Not Available No t Available amoxicillin 500 mg-potassiu m clavulanate 125 mg tablet TK ONE T PO BID TAT active Not Available Not Available No t Available oxycodone 5 mg tablet TK 1 T PO Q 6 H PRN P 08/16 completed Not Available Not Available Not Available Suprep Bowel Prep Kit 17.5 gram-3.13 gram-1.6 gram oral solution DILUTE AND DRINK FULL AMOUNT EARLY EVENING BEFORE AND NEXT MORNING AT LEAST 2 HOURS BEFORE PROCEDURE . FOLLOW WITH 960 ML OF WATER active Not Available Not Available No t Available Vitals Date Recorded Body weight Body temperature Heart rate Oxygen saturation Oxygen saturation in Arterial blood by Pulse oximetry Provider Name and Address Organization Details Last Updated DateTime 4 57027.1 9 g 98.2 [degF] 79 /min 97 % 97 % Amanda Richard RN [facility] [employer] [facility] 4 11:09:43 Date Recorded Systolic blood pressure Diastolic blood pressure Provider Name and Address Organization Details Last Updated DateTime 11/13/2023 138 mm[Hg] 74 mm[Hg] Paris Cruz MD [address] [place] [address], [place], [address], [facility] [employer] [facility] 11/13/2023 11:41:27 Date Recorded Body weight Body mass index (BMI) Body height Body temperature Heart rate Oxygen saturation Oxygen saturation in Arterial blood by Pulse oximetry Systolic blood pressure Diastolic blood pressure Systolic blood pressure Diastolic blood pressure Provider Name and Address Organization Details Last Updated DateTime 4 58614.3 7 g 28.5 kg/m2 160.02 cm 97.8 [degF] 80 /min 98 % 98 % 198 mm[Hg] 102 mm[Hg] 190 mm[Hg] 100 mm[Hg] Olivia Smith RN [facility] [employer] [facility] 4 08:38:24 Date Recorded Body height Body mass index (BMI) Body weight Body temperature Heart rate Oxygen saturation Oxygen saturation in Arterial blood by Pulse oximetry Systolic blood pressure Diastolic blood pressure Provider Name and Address Organization Details Last Updated DateTime 4 160.02 cm 27.8 kg/m2 32521 g 98.5 [degF] 77 /min 97 % 97 % 154 mm[Hg] 90 mm[Hg] Olivia Smith RN [facility] [employer] [facility] 4 14:42:55 Date Recorded Body mass index (BMI) Body height Oxygen saturation Oxygen saturation in Arterial blood by Pulse oximetry Heart rate Body temperature Body weight Systolic blood pressure Diastolic blood pressure Provider Name and Address Organization Details Last Updated DateTime 1 28.3 kg/m2 160.02 cm 98 % 98 % 72 /min 98.1 [degF] 96687.7 8 g 148 mm[Hg] 88 mm[Hg] Not Available [facility] 3 00:46:35 Date Recorded Body mass index (BMI) Body height Oxygen saturation Oxygen saturation in Arterial blood by Pulse oximetry Heart rate Body temperature Body weight Systolic blood pressure Diastolic blood pressure Provider Name and Address Organization Details Last Updated DateTime 3 28.3 kg/m2 160.02 cm 98 % 98 % 76 /min 97.2 [degF] 91831.7 8 g 138 mm[Hg] 92 mm[Hg] Not Available [facility] 3 00:46:35 Social History Question Answer Notes LastModified by [employer] ion Details LastModified Time Tobacco Smoking Status Current Every Day Smoker 1/2 pack per day smoking since 16 Not Available [facility] 09/27/2022 00:43:37 In The 14 Days Before Symptom Onset, Have You Had Close Contact With A Laboratory-confir med COVID-19 While That Case Was Ill? No [id number] Information not available 09/27/2022 In The 14 Days Before Symptom Onset, Have You Had Close Contact With A Person Who Is Under Investigation For COVID-19 While That Person Was Ill? No [id number] Information not available 09/27/2022 What Was The Date Of Your Most Recent Tobacco Screening? 11/13/2023 Information not available 11/13/2023 Sex: Unknown Functional Status None recorded. Mental Status None recorded. Family History Relationship Description Onset Age of this Age Resolved Age Notes LastModified by Organization Details LastModified Time Mother Aneurysm brain [id number] Not available 09/27/2022 00:44:44 Father Diabetes mellitus [id number] Not available 09/27/2022 00:44:44 Father Heart disease [id number] Not available 09/27/2022 00:44:44 Medical History No medical history recorded. Gynecological HistoryNo gynecological history recorded. Obstetrics History GPAL:G 0 P 0 0 0 0 Immunizations Vaccine Type Date Status Note Provider Nam e and Address Organization Details Recorded Time SARS-COV-2 (COVID-19) vaccine, UNSPECIFIED completed Not Available [facility] 09/27/2022 00:53:32 Past Encounters Encounter ID Performer Location Encounter Start Date Encounter Closed Date Diagnosis/Indication Diagnosis SNOMED-CT Code Diagnosis ICD10 Code Diagnosis Note [id number] [facility] [address] [facility] [address] [place] [address] 10/05/2020 00:00:00 10/05/2020 15:18:03 [id number] [facility] Primary [facility] [address] [place] [address] [address] [place] [address] 01/04/2021 00:00:00 01/25/2021 18:10:51 [id number] [address] [facility] [address] [place] [address] 08/08/2022 00:00:00 08/23/2022 18:23:12 [id number] [facility] [address] [place] [address] [address] [place] [address] 11/13/2023 11:05:18 11/13/2023 11:55:26 Adult health examination 245678394 Z00.00 Z13.1 Mammogram order given DEXA order given Fasting labs ordered Recommend shingles vaccine Flu, covid and pneumonia vaccines recommende d Pap normal 2020 Colonoscop y done 09/03/20 repeat 5 years Postmenopausal state 764 78056 Z78.0 Smoker 58470927 F17.210 work on smoking cessation Essential hypertension 31314812 I10 Vitamin D deficiency 347 76051 E55.9 Hypothyroidism 28873148 E03.9 Hyperlipidemia 65286050 E78.5 [id number] ZOILA Garza [facility] [address] [place] [address] [address] [place] [address] 12/14/2023 08:11:24 12/14/2023 08:48:13 Acute sinusitis 31663551 J01.90 -has been dealing with symptoms since November 21-still having sinus congestion , decreased hearing-fi nished zpack without resolution -has been using flonase and carmela-tr ial amox-clav, prednisone Essential hypertension 19709529 I10 -bp currently 198/102, some CEDILLO lately, no cp/sob-cur rently takes losartan 100mg, took shortly before coming to appt this am-approx 4 bottles of water/day- takes multivitam in-labs obtained-t rial losartan/h ctz [id number] Shay Obrien, TINO-C [facility] [address] [facility] [address] [place] [address] 01/16/2024 14:34:40 01/16/2024 15:10:01 Essential hypertension 66136879 I10 01-16-24-bp currently 154/90, 77-checks bp occ with electric cuff, noting ranges in normal limits-4-6 bottles of water daily-labs discussed with pt 12-14-23-bp currently 198/102, some CEDILLO lately, no cp/sob-cur rently takes losartan 100mg, took shortly before coming to appt this am-approx 4 bottles of water/day- takes multivitam in-labs obtained-t rial losartan/h ctz Health Concerns Section Related Observation LastModified by Organization Detai ls LastModified Time None Recorded Concern Status LastModified by Organization Details LastModified Time None Recorded Advance Directives Directive None Recorded Payers Encounter Date Sequence Insurance Name Policy Number Policy Abreu Covered Member ID Abreu Member ID Guarantor Name 11/13/2023 1 [facility] (MEDICARE REPLACEMENT/A DVANTAGE - PPO) [id number] Analisa A Dottie [id number] Analisa A Dottie 12/14/2023 1 [facility] (MEDICARE REPLACEMENT/A DVANTAGE - PPO) [id number] Analisa A Dottie [id number] Analisa A Dottie 01/16/2024 1 [facility] (MEDICARE REPLACEMENT/A DVANTAGE - PPO) [id number] Analisa A Dottie [id number] Analisa A Dottie Notes Date Note Type Note Provider Name and Address Organization Details Recorded Time 11/13/2023 text/html Here for wellness examno chest pain or sob Paris Cruz MD [address] [facility], [facility] [address], [place], [address], [facility] [id number] 12/16/2023 17:30:26 12/14/2023 text/html pt is here for sinus infection ZOILA Garza [address] [place] [address], [place], [address], [facility] [employer] [facility] 12/14/2023 11:10:11 01/16/2024 text/html Pt is here for bp f/u ZOILA Garza [address] [place] [address], [place], [address], [facility] [employer] [facility] 01/24/2024 09:05:00 OBGyn Episode No OBEpisode recorded.
--- OUTSIDE RECORDS SUMMARY | 2024-11-24 14:41 | XMS_ITS | Clinical Summary ---
Author Organization [facility] Address [address] [place] [address] Care Team Providers Care Flight Control Tower Operator Name Role Phone Linnette Chadwick MD Primary Care Provider + Allergies No known active allergies Medications acetaminophen-codei ne (TYLENOL #3) 300-30 MG tablet Active varenicline (CHANTIX CONTINUING MONTH CIERRA) 1 MG tabletIndications:S moker Take 1 tablet (1 mg total) by mouth 2 (two) times daily. 180 tablet 1 5 04/19/20 25 Active hydroCHLOROthiazide (MICROZIDE) 12.5 MG capsuleIndications: Essential hypertension Take 1 capsule (12.5 mg total) by mouth every morning. 90 capsule 3 5 10/22/19 26 Active losartan (COZAAR) 100 MG tabletIndications:E ssential hypertension Take 1 tablet (100 mg total) by mouth daily. 90 tablet 3 5 10/22/19 26 Active levothyroxine (SYNTHROID) 50 MCG tabletIndications:A cquired hypothyroidism Take 1 tablet (50 mcg total) by mouth every morning. 90 tablet 5 Active Active Problems Problem Noted Date Diagnosed Date Essential hypertension 08/20/2024 Overview (10/21/2024): Takes losartan. Blood pressure at home 150s systolic. She prefers not to add more medication. Assessment & Plan (10/21/2024 2:01 PM CDT): Barely controlled today and home readings are elevated. Discussed consideration for adding hydrochlorothiazide 12.5 mg daily along with losartan 100 mg daily. She is agreeable. Assessment & Plan (08/20/2024 3:14 PM MISSILE AND MISSILE CHECKOUT TECHNICIAN): Not controlled. Patient prefers not to add additional medication. Recommend continue losartan and make lifestyle changes. Follow-up in 1 month to determine whether additional medication is needed. History of cervical dysplasia 08/20/2024 Overview (08/20/2024): Had one with Dr. Cruz, Dr. Bobby ([place]) Assessment & Plan (08/20/2024 3:15 PM MISSILE AND MISSILE CHECKOUT TECHNICIAN): Patient is agreeable to a repeat Pap smear depending on if this is necessary. Requested records with her previous providers. Hypothyroidism 11/13/2023 Overview (10/21/2024): Labs 10/2023 shows low T4 and high TSH. Started levothyroxine 07/2024. Since starting medication she has not noticed a significant improvement in symptoms. Assessment & Plan (10/21/2024 3:26 PM CDT): Will repeat TSH with reflex to confirm if she needs the adjustment in levothyroxine. Likely will need to increase to 50 mcg daily. Assessment & Plan (08/20/2024 3:16 PM MISSILE AND MISSILE CHECKOUT TECHNICIAN): Will check TSH with reflex T4 to confirm whether she requires levothyroxine. Mixed hyperlipidemia 11/13/2023 Overview (08/20/2024): ASCVD risk 21%. Assessment & Plan (08/20/2024 3:16 PM MISSILE AND MISSILE CHECKOUT TECHNICIAN): Discussed ASCVD risk and patient would like to quit smoking to reduce her risk. See below. Smoker 11/13/2023 Overview (08/20/2024): Has been smoking for 50 years averaging a pack per day. She would like to quit. Has not tried anything but patches in the past. Assessment & Plan (08/20/2024 3:16 PM MISSILE AND MISSILE CHECKOUT TECHNICIAN): Recommended trial of Chantix. She is agreeable. Vitamin D deficiency 11/13/2023 Assessment & Plan (08/20/2024 3:16 PM MISSILE AND MISSILE CHECKOUT TECHNICIAN): Will check vitamin D levels to confirm if this is resolved. Squamous cell carcinoma of skin of lower extremi ty 07/29/2010 Encounters Date Type Department Care Team Description 10/21/2024 1:00 PM CDT Office Visit [facility] - [place] [address] [facility] [address] [place] [address] Linnette Chadwick MD Follow Up (Blood pressure. Still running high./Also, wants to discuss the thyroid meds. ) 10/21/2024 - 10/21/2024 11:59 PM CDT Hospital Encounter [facility] [address] [place] [address] Linnette Chadwick MD Discharge Disposition: Home or Self Care (Routine Discharge) 10/21/2024 Travel from Last 3 Months Immunizations Immunization Administration Dates Next Due COVID-19 Vaccine (Generic) 10/05/2020 Pneumococcal (Prevnar 20) 08/20/2024 Tdap (Generic) 07/30/2009 Family History Medical History Relation Comments No Known Problems Brother 1 passed from mo torcycle accident Rheumatic Fever Brother 2 Seizures Brother 3 enlarged prostate Brother 3 Skin cancer Brother 4 Atrial fibrillation Brother 5 No Known Problems Daughter 1 No Known Problems Daughter 2 Diabetes Father Heart Disease Father Aneurysm Mother from Relation Status Comments Brother 1 Brother 2 Alive Brother 3 Alive Brother 4 Alive Brother 5 Alive Daughter 1 Alive Daughter 2 Alive Father Mother Social History Tobacco Use Types Packs/Day Years Used Date Smoking Tobacco: Every Day Cigarettes 0.9 52.3 Started: 1972 Passive Smoke Exposure: Never Smokeless Tobacco: Never Tobacco Cessation:Ready to Q uit: Yes; Counseling Given: Yes Alcohol Use Standard Drinks/Week Comments Yes 0 (1 standard drink = 0.6 oz pur e alcohol) socially PHQ-2 Answer Date Recorded Patient Health Questionnaire-2 Score 0 10/21/2024 Comments No Sex and Gender Information Value Date Recorded Sex Assigned at Not on file Legal Sex Female 2:35 PM MISSILE AND MISSILE CHECKOUT TECHNICIAN Gender Identity Not on file Sexual Orientation Not on file Last Filed Vital Signs Vital Sign Reading Time Taken Comments Blood Pressure 138/88 10/21/2024 12:59 PM CDT Pulse 73 10/21/2024 12:59 PM CDT Temperature 36.9 C (98.5 F) 10/21/2024 12:59 PM CDT Respiratory Rate 16 08/20/2024 2:18 PM MISSILE AND MISSILE CHECKOUT TECHNICIAN Oxygen Saturation 98% 10/21/2024 12:59 PM CDT Inhaled Oxygen Concentration - - Weight 73.6 kg (162 lb 3.2 oz) 10/21/2024 12:59 PM CDT Height 160 cm (5' 3 ) 10/21/2024 12:59 PM CDT Body Mass Index 28.73 10/21/2024 12:59 PM CDT Plan of Treatment Upcoming Encounters Date Type Department Care Team (Late st Contact Info) Description 04/28/2025 1:20 PM CDT Office Visit [facility] Family Medicine - [place] [address] [place] [address] Linnette Chadwick MD [address] [place], [place] [address] Health Maintenance Due Date Last Done Comments Hepatitis C 1975 Lung Cancer Screening 2007 Zoster Vaccines (1 of 2) 2007 DTaP, Tdap and Td Vaccines ( 2 - Td or Tdap) 07/30/2019 07/30/2009 Annual Medicare Wellness Visit 2022 Dexa Scan (General) 2022 COVID-19 Vaccine (3 - 2023-2 5 season) 2024 10/05/2020, 10/05/2020 Mammogram Screening 11/21/2025 11/22/2023, 12/08/2015 Colorectal Cancer Screening Colonoscopy (10 Years) 09/03/2030 09/03/2020 RSV Immunization or 60+ Years (1 - 1-dose 75+ series) 2032 Pneumococcal Vaccine: 50+ Years Completed 08/20/2024 PHQ-2 ([facility] [place]) Completed 10/21/2024 Meningococcal B Vaccine Aged Out No l onger eligible based on patient's age to complete this topic Meningococcal Vaccine Aged Out No jaja ousmane eligible based on patient's age to complete this topic RSV Immunizations Under 20 Months Aged Out No longer eligible b ased on patient's age to complete this topic Procedures Procedure Name Priority Date/Time Associated Diagnosis Comments COLLECTION VENOUS BLOOD VENIPUNCTURE Routine 10/21/2024 1:55 PM CDT Acquired hypothyroidism THYROXINE, FREE (FT4) Routine 10/21/2024 1:55 PM CDT TSH W/REFLEX Routine 10/21/2024 1:55 PM CDT Acquired hypothyroidism MAMMOGRAM GENERIC (SCAN ORDER) 11/22/2023 COLONOSCOPY GENERIC (SCAN ORDER) 09/03/2020 from Last 3 Months or Most Recently Relevant to Health Maintenance Results * (ABNORMAL) TSH W/REFLEX (10/21/2024 1:55 PM CDT) TSH 4.757(H) 0.358 - 3.740 uIU/ML 10/21/2024 8:10 PM CDT [facility] 10/21/2024 1:55 PM CDT Linnette Chadwick MD LABORATORY Final Re sult [facility] [address] [place] [address], [place] [phone] * THYROXINE, FREE (FT4) (10/21/2024 1:55 PM CDT) FREE T4 0.79 0.76 - 1.46 NG/DL 10/22/2024 5:33 PM CDT [facility] 10/21/2024 1:55 PM CDT Linnette Chadwick MD LABORATORY Final Re sult [facility] [address] [place] [address], [phone] * MAMMOGRAM GENERIC (SCAN ORDER) (11/22/2023) Anatomical Region Laterality Modality Other 11/22/2023 us [employer] Scanned SCANNING Final Resu lt * COLONOSCOPY GENERIC (SCAN ORDER) (09/03/2020) 09/03/2020 us [employer] [facility] Scanned SCANNING Final Resu lt from Last 3 Months or Most Recently Relevant to Health Maintenance Insurance [facility] Care Teams Flight Control Tower Operator Relationship Specialty Start Date End Date Linnette Chadwick MD [address] [place] [id number] PCP - General FAMILY PRACTICE 08/20/24
--- OUTSIDE RECORDS SUMMARY | 2024-11-24 14:41 | XMS_ITS | Clinical Summary ---
Author Organization [facility] Address [address] [facility] [place] [address] Phone Care Team Providers Care Fundraising Specialist Name Role Phone Unavailable Primary Care Provider Unavailabl e Family History Medical History Relation Name Comments Breast Cancer Neg Hx Ovarian Cancer Neg Hx Social History Tobacco Use Types Packs/Day Years Used Date Smoking Tobacco: Never Assessed Comments Unknown Sex and Gender Information Value Date Recorded Sex Assigned at Not on file Legal Sex Female 5:43 AM DATA PROCESSING CONTROL CLERK Gender Identity Not on file Sexual Orientation Not on file Plan of Treatment Health Maintenance Due Date Last Done Comments DTAP/TDAP/TD VACCINES (1 - Tdap) 1976 COLORECTAL SCREENING 2002 Colorectal Cancer Screening 2002 FIT-DNA Q 3 years 2002 FIT/FOBT Q 1 year 2002 Flex Sig/CT Colonography Q 5 years 2002 PNEUMOCOCCAL VACCINE 50+ YEA RS (1 of 1 - PCV) 2007 ZOSTER VACCINE (1 of 2) 2007 BREAST CANCER SCREENING 12/07/2016 12/08/2015, 10/14 OSTEOPOROSIS SCREENING 2022 INFLUENZA VACCINE (#1) 2024 RSV VACCINE (60+ or ) (1 - 1-dose 75+ series) 2032 Procedures Procedure Name Priority Date/Time Associated Diagnosis Comments MAMMO SCREEN BILAT W OR WO CAD Routine 12/08/2015 2:15 PM CDT Visit for screening mammogram from Last 3 Months or Most Recently Relevant to Health Maintenance Results * MAMMO DIGITAL SCREEN BILAT (12/08/2015 2:15 PM CDT) Anatomical Region Laterality Modality Breast Bilateral Mammography Narrative 12/09/2015 12:52 PM CDT Bilateral digital screening mammogram with computer assisted diagnosis History: Annual screening exam. Findings: A bilateral screening mammogram was performed. Comparison is made to : 10/14/2008 There are scattered fibroglandular densities. No new masses, suspicious calcifications, or areas of asymmetry or distortion are identified. CAD was utilized. Impression: Negative screening mammogram. Recommendation: Routine annual follow-up Overall Assessment: Birads Category 1: Negative us [employer] MAMMO ORDERABLES Final Result from Last 3 Months or Most Recently Relevant to Health Maintenance
== END 2024-11-24 13:01 | disposition home or self-care (01) ==
PROVIDERS: PCP Student in an Organized Health Care Education/Training Program; Visit Provider Student in an Organized Health Care Education/Training Program
DX: Z12.2 Encounter for screening for malignant neoplasm of respiratory organs (principal); F17.210 Nicotine dependence, cigarettes, uncomplicated
CPT/HCPCS: 71271

== ENCOUNTER 2025-02-03 15:01 | Outpatient (CLI) | payer MEDICARE, SELFPAY ==
--- NOTE | ~2025-02-03 | DEXA_ITS ---
Bone Density Report Name: DORETHA BARRAZA Age: 69 Sex: Female Ethnicity: White Date of : 1955 Indication: postmenopausal; screening for osteoporosis; height loss; Referring Provider: RASHEED, FRANCOIS Bloom Study: Bone densitometry was performed. Exam Date: February 03, 2025 Accession number: [id number] Bone Density: Region BMD T-score Z-score Classification AP Spine(L1-L4) 1.047 0.0 2.0 Normal Femoral Neck (Left) 0.863 0.1 1.8 Normal Total Hip (Left) 0.954 0.1 1.5 Normal Femoral Neck (Right) 0.825 -0.2 1.5 Normal Total Hip (Right) 0.998 0.5 1.8 Normal Total Hip Mean 0.976 0.3 1.7 Normal World Health Organization criteria for BMD impression classify patients as: Normal (T-score at or above -1.0), Osteopenia (T-score between -1.0 and -2.5), or Osteoporosis (T-score at or below -2.5). 10-year Fracture Risk: FRAX not reported because: All T-scores for Spine Total, Hip Total, Femoral Neck at or above -1.0 Clinical Information Provided by Patient: Smokes Has used the following medications: Vitamin D, Calcium Patient maximum height was 63 Menopause Age: 52 No regular weight bearing exercise Drinks caffeinated beverages Onset of menses at age 14 Number of children 2 Impression: The patient has normal bone mass. The patient has risk factors, including: smoking. Discussion: BONE DENSITY IS ABOVE THE MINIMUM DESIRABLE LEVEL AT ALL SKELETAL SITES TESTED. This patient?s bone mineral density is above the minimum desirable level (T-score -1.0 or better) at all sites measured. The patient should follow a healthful lifestyle (good nutrition with adequate calcium and vitamin D, and appropriate weight-bearing exercise). Follow-Up: Consider repeating this study in 5 years or sooner if there is some new clinical indication. Reported by: DEMARCUS on 02/03/2025 3:52:00 PM. Reviewed, dictated and finalized at location A.
--- OUTSIDE RECORDS SUMMARY | 2025-02-03 15:06 | XMS_ITS | Data Portability ---
Author Organization [employer], Surgery Address [place], [place] [address] Care Team Providers Care Industrial Engineering Director Name Role Phone ADILENE TREVIZO Primary Care Provider Assessment No assessment recorded. Plan of Treatment Reminders Order Date Submit Date Provider Last Modified By Organization Details Last Modified Time Details Appointments None recorded. Lab CBC w/diff 2011 012 YASSINE [facility] (Centralized Electronic Ordering - All Locations), Patient Can Go To The Location Of Their Choice, 3 03:17:57 vitamin D,25-hydrox y 2011 012 YASSINE [facility] (Centralized Electronic Ordering - All Locations), Patient Can Go To The Location Of Their Choice, 3 03:17:57 comp metabolic panel w/fasting glucose 2011 012 YASSINE [facility] (Centralized Electronic Ordering - All Locations), Patient Can Go To The Location Of Their Choice, 3 03:17:57 lipid panel w/ calculated LDL 2011 012 YASSINE [facility] (Centralized Electronic Ordering - All Locations), Patient Can Go To The Location Of Their Choice, 3 03:17:57 T4 free 2011 012 YASSINE [facility] (Centralized Electronic Ordering - All Locations), Patient Can Go To The Location Of Their Choice, 3 03:17:57 thyroid stimulating hormone (TSH) 2011 012 YASSINE [facility] (Centralized Electronic Ordering - All Locations), Patient Can Go To The Location Of Their Choice, [address] 3 03:17:57 urinalysis, dipstick 2011 012 YASSINE In-House Results, For Internal Use Only, Do Not Delete/merge, [id number] 3 03:17:58 Pap, thin prep & HPV high risk and HPV 16/18 2011 012 YASSINE [facility] (Centralized Electronic Ordering - All Locations), Patient Can Go To The Location Of Their Choice, [id number] 3 03:17:57 occult blood, screen 2011 012 YASSINE In-House Results, For Internal Use Only, Do Not Delete/merge, 3 03:17:57 Referral colonoscopy referral 2011 012 YASSINE Not available 3 03:17:57 Procedures None recorded. Surgeries None recorded. Imaging bone density, hip and spine 2011 012 YASSINE Not available 3 03:17:57 mammogram, screening 2011 012 YASSINE Not available 3 03:17:57 Medication Orders Chantix Starting Month Box 0.5 mg (11)-1 mg (42) tablets in dose pack 2011 012 [id number], [address], [place], [place], [id number], 3 03:17:58 Chantix Continuing Month Box 1 mg tablet 2011 012 [facility] #[id number], [address], [place], [place], [id number], 3 03:17:58 Patient TargetsNo targets recorded. Patient Instructions Encounter Date Encounter Id Patient Instructions Last Modified By Organization Details Last Modified Time 03/18/2012 [id number] advance directives: care instructions YASSINE Not available 02/22/2013 03:17:57 Reason for Referral Referring Physician: Vinita Lopezn, DATACAP DEVELOPER, Encounter Date: 03/18/2012 Results Created Date Observation Date Name Description Value Unit Range Abnormal Flag Note LastModifiedBy Organization Detail LastModifiedTime 03/18/20 12 03/18/2012 occul t blood , scree n Occult Blood negati ve Not Available In-House Results For Internal Use Only, Do Not Delete/merge, 03/18/2012 16:50:50 03/18/20 12 03/18/2012 urina lysis , dipst ick Leukocytes Negati ve Not Available In-House Results For Internal Use Only, Do Not Delete/merge, 03/18/2012 16:22:38 03/18/20 12 03/18/2012 urina lysis , dipst ick Nitrite negati ve Not Available In-House Results For Internal Use Only, Do Not Delete/merge, 03/18/2012 16:22:38 03/18/20 12 03/18/2012 urina lysis , dipst ick Urobilinogen .2 Not Available In-Ho use Results For Internal Use Only, Do Not Delete/merge, 03/18/2012 16:22:38 03/18/20 12 03/18/2012 urina lysis , dipst ick Protein Negati ve Not Available In-House Results For Internal Use Only, Do Not Delete/merge, 03/18/2012 16:22:38 03/18/20 12 03/18/2012 urina lysis , dipst ick pH 5.0 Not Available In-House Results For Internal Use Only, Do Not Delete/merge, 03/18/2012 16:22:38 03/18/20 12 03/18/2012 urina lysis , dipst ick Blood Negati ve Not Available In-House Results For Internal Use Only, Do Not Delete/merge, 03/18/2012 16:22:38 03/18/20 12 03/18/2012 urina lysis , dipst ick Specific Imbler 1.010 Not Available In-Celia se Results For Internal Use Only, Do Not Delete/merge, 03/18/2012 16:22:38 03/18/20 12 03/18/2012 urina lysis , dipst ick Ketone Negati ve Not Available In-House Results For Internal Use Only, Do Not Delete/merge, 03/18/2012 16:22:38 03/18/20 12 03/18/2012 urina lysis , dipst ick Bilirubin Negati ve Not Available In-House Results For Internal Use Only, Do Not Delete/merge, 03/18/2012 16:22:38 03/18/20 12 03/18/2012 urina lysis , dipst ick Glucose Negati ve Not Available In-House Results For Internal Use Only, Do Not Delete/merge, 03/18/2012 16:22:38 03/19/20 12 03/22/2012 Pap ig, HPV and rfx HPV 16/18 diagnosis: [facility] abnormal epith elial cell abnor malit y. atypi karen squam ous cells of undet ermin ed signi fican ce. Not Available [facility] ([facility]) [address] [place], [address], 03/22/2012 20:12:34 03/19/20 12 03/22/2012 Pap ig, HPV and rfx HPV 16/18 specimen adequacy: [facility] satis facto ry for evalu ation . endoc ervic al and/o r squam ous metap lasti c cells (endo cervi karen compo nent) are prese nt. 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 Not Available [facility] ([facility]) [address] [place], [address], 03/22/2012 20:12:34 03/19/20 12 03/22/2012 Pap ig, HPV and rfx HPV 16/18 performed by: [facility] myron cooney , kenna qureshi Not Available [facility] ([facility]) [address] [place], [address], 03/22/2012 20:12:34 03/19/20 12 03/22/2012 Pap ig, HPV and rfx HPV 16/18 electronical ly signed by: [facility] ana martinez md, patho logis t Not Available [facility] ([facility]) [address] [place], [address], 03/22/2012 20:12:34 03/19/20 12 03/22/2012 Pap ig, HPV and rfx HPV 16/18 . . Not Available [facility] ([facility]) [address] [place], [address], 03/22/2012 20:12:34 03/19/20 12 03/22/2012 Pap ig, HPV and rfx HPV 16/18 pathologist provided ICD9: [facility] 795.0 1 Not Available [facility] ([facility]) [address] [place], [address], 03/22/2012 20:12:34 03/19/20 12 03/22/2012 Pap ig, HPV and rfx HPV 16/18 note: PAPSMR the Pap smear IS A scree lencho test desig minesh to aid in the detec tion of baljit ligna nt and malig nant condi tions of the uteri ne cervi x. IT IS not A diagn ostic proce dure and shoul d not BE used the sole means of detec ting cervi karen cance r. both false -posi tive and false -nega tive repor ts do occur . . Not Available [facility] ([facility]) [address] [place], [address], 03/22/2012 20:12:34 03/19/20 12 03/22/2012 Pap ig, HPV and rfx HPV 16/18 test methodology: IGLPAP this liqui d based thinp rep(R ) Pap test was scree minesh with the use of an image guide d syste m. Not Available [facility] ([facility]) [address] [place], [address], 03/22/2012 20:12:34 03/19/20 12 03/22/2012 Pap ig, HPV and rfx HPV 16/18 HPV, high-risk NEGATI VE negati ve this high- risk HPV test detec ts thirt een high- risk types (16/1 8/31/ 33/35 /39/4 5/51/ 52/56 /58/5 /) witho ut diffe renti ation . . Not Available [facility] ([facility]) [address] [facility], [place], [address], 03/22/2012 20:12:34 Result Notes None recorded. Problems Name Problem SNOMED Code Status Onset Date Resolution Date Notes Provider Name and Address Organization Details Recorded Time Mixed hyperlipi demia 795475049 Active Diet and excercise Not Available [facility] 3 03:03:09 Elevated blood-pre ssure reading without diagnosis of hypertens ion 804114390 Active Intermitte nt Not Available [facility] 3 03:03:09 Endometri osis of ovary 549656073 Active 1993 Not Available [facility] 3 03:03:09 History of dysplasia of cervix 239861864 Active Not Available [employer] 3 03:03:09 Human papilloma virus infection 632392421 Active Not Available [facility] 3 03:03:09 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 Procedures Surgical History Date Name Laterality Status Provider Name and Address Organization Details Recorded Time 07/30/19 06 Hysteroscopy / Polyp, Fibroid, Other completed Emeli Cabrera [facility] 02/27/2012 09:56:00 07/30/18 94 Other Surgery - List type completed Emeli Cabrera [facility] 02/27/2012 09:56:00 07/30/18 90 Tubal Ligation completed Emeli Cabrera [facility] 02/27/2012 09:56:00 Imaging Results None recorded. Procedure Notes None recorded. Medical Equipment None Reported. Allergies No known drug allergies Medications Name Sig Start Date Stop Date Status Note LastModified by Organization Details LastModified Time Aleve active Not Available Not Availa ble Not Available Chantix Continuing Month Box 1 mg tablet Take 1 tablet twice a day by oral route. 2011 active Not Available Not Available Not Avai lable Chantix Starting Month Box 0.5 mg (11)-1 mg (42) tablets in dose pack Take by oral route per package instruction for starting month 2011 active Not Available Not Available Not Avai lable Vitals Date Recorded Body height Body weight Body mass index (BMI) Systolic And Diastolic Provider Name and Address Organization Details Last Updated DateTime 03/18/2012 160.02 cm 02613.166 344 g 26.8 kg/m2 122/80 mm[Hg] Marifer Tirado [facility] 03/18/2012 16:20:18 Social History Question Answer Notes LastModified by Organizat ion Details LastModified Time Tobacco Smoking Status Current Every Day Smoker wants chanalvaro wray [facility] 03/18/2012 17:03:57 Do You Have An Advance Directive? No [email or web address] Information not available 03/18/2012 Is Blood Transfusion Acceptable In An Emergency? Yes [email or web address] Information not available 03/18/2012 Are There Any Guns Present In Your Home? Yes Secured [email or web address] Information not available 03/18/2012 Live Alone Or With Others? With Others [email or web address] Information not available 03/18/2012 How Much Sleep? Too Busy To Sleep [email or web address] Information not available 03/18/2012 Alcohol Intake Frequency Occasional [email or web address] Information not available 03/18/2012 Caffeine Intake Frequency Daily [email or web address] Information not available 03/18/2012 Caffeine How Many Cups Per Day? / What Type? 2-3 C Coffee 32 Oz Tea Information not available 03/18/2012 Regular Exercise? Daily With Active Lifestyle [email or web address] Information not available 03/18/2012 Illicit Drug Use Frequency (prescription Or Street) Never [email or web address] Information not available 03/18/2012 Current Student? No [email or web address] Information not available 03/18/2012 Diet? Mostly Healthy [email or web address] Informatio n not available 03/18/2012 Calcuim 1,000 - 1,500mg Daily (diet / Suplements)? Yes Multi Vit Information not available 03/18/2012 Diet High In Fiber? Yes [email or web address] Information not available 03/18/2012 Avoid Second Hand Smoke Exposure? No [email or web address] Information not available 03/18/2012 Martial Status: [email or web address] Informati on not available 03/18/2012 Monthly Self Breast Exams? No Information not available 03/18/2012 Regular Tooth Brushing, Flossing, And Dental Visits? Yes [email or web address] Information not available 03/18/2012 Education Level: Some College [email or web address] Information not available 03/18/2012 Previous Attempts To Decrease Alcohol Consumption? No [email or web address] Information not available 03/18/2012 Do You Use Your Seat Belt Or Car Seat Routinely? Yes [email or web address] Information not available 03/18/2012 Do You Have Smoke And Carbon Monoxide Detectors In Your Home? Yes [email or web address] Information not available 03/18/2012 At What Age Did You Start Smoking Tobacco? 18 Information not available 03/18/2012 How Much Tobacco Do You Smoke? 1 PPW [email or web address] Information not available 03/18/2012 Do You Use Sunscreen Routinely? No [email or web address] Information not available 03/18/2012 How Many Years Have You Smoked Tobacco? 26 [email or web address] Information not available 03/18/2012 Sex: Unknown Functional Status Question Answer Note LastModified by Organizat ion Details LastModified Time Are you currently employed? 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 Family History Relationship Description Onset Age of this Age Resolved Age Notes LastModified by Organization Details LastModified Time Mother Cerebrovascu lar accident 52 previo usly record ed as Stroke [email or web address] [id number] Not available 04/27/2013 03:02:49 Paternal Grandfather Malignant neoplastic disease was a coal wheeler deceas ed in his 60's (previ ously record ed as Unspec ified Cancer (Prima ry source unknow n)) [email or web address] [id number] Not available 04/27/2013 03:02:49 Paternal Grandmother Diabetes mellitus 78 type 1 (previ ously record ed as Diabet es) [email or web address] [id number] Not available 04/27/2013 03:02:49 Maternal Grandfather Malignant neoplasm of lung was a coal wheeler deceas ed unknow n age (previ ously record ed as Lung Cancer ) [email or web address] [id number] Not available 04/27/2013 03:02:49 Maternal Grandmother Problem late 70's deceas ed [email or web address] [id number] Not available 04/27/2013 03:02:49 Father Diabetes mellitus type 1 (previ ously record ed as Diabet es) [email or web address] [id number] Not available 04/27/2013 03:02:49 Father Disorder of cardiovascul ar system hbp and unspec ified heart diseas e (previ ously record ed as High Blood Pressu re, Other Heart /Vascu lar /DVT/P E) [email or web address] [id number] Not available 04/27/2013 03:02:49 Medical History Condition Response High Blood Pressure N Liver Disease - Other (not cancer) N Nervous System Disorders - Other N Depression N Blood Disorder (Excessive) Von Willebran d's or Other N Other Musculoskeletal Disorder N Allergies - seasonal / environmental N Genital Warts - Personal History N Dysplasia, Vaginal - Personal History N Elevated cholesterol, triglycerides Y Anxiety Disorder N Breast Problem Fibrocystic N Human Papilloma Virus HPV) Y Arthritis N Urinary Tract Infection (UTI), Personal Hx N Infertility N Kidney stones N Inherited Anemia / Sickle Cell, Thalasem ia N Immune Disorder N HIV / AIDS N Stroke - Unspecified Residual Late Effec t N Rheumatoid Arthritis N Polycystic Kidney Disease N Fibromyalgia N History of blood transfusion N Other skin disorder (not cancer or eczem a) N Dysplasia, Anal - Personal History N Diabetes, Type 1 N Colon Polyps, Personal Hx N Liver Cirrhosis N Metabolic Syndrome X N Gallbladder Disease N Fibroids Uterine N Herpes, Genital N Migraines N Psychiatric Illness - Other N Osteoporesis N Heart Disease - Other N Blind or visual loss (Legally blind) N Constipation N Alzeiheimer's Disease N Osteopenia N Heart Disease, cornary artery (including DC) N Anemia, unspecified N Crohn's Disease (Regional Enteritis) N Asthma N Other breast problem (not cancer) N Chronic Obstructive Airway Disease (COPD ) N Diabetes, Type 2 N Dementia - Not Alzeiheimer's N Mitral Valve Prolapse N Hypothyroidism - Low thyroid N Gastrointertinal Disease - Other N Breast Cancer N Chronic Renal Failure N Glaucoma N Urinary and/or Stool Incontinence N Defects or Inherited Disease N Eye, Ear, Nose, Mouth, Throat - Other N Headache, Not Migraine N Irritable Bowel Syndrome (IBS) N Dysplasia, Vulvar - Personal History N Varicose veins N PMS/PMDD N Heartburn, Reflux, GERD N Other Blood Disorder N Lupus /Other Connective Tissue Disorder N Embolism Pulmonary/Other - Personal Hist ory N Polycystic Ovaries (PCOS) N Chlamydia - Personal History N Genetic Dx Carrier Status N Elevated BP without Dx of Hypertension Y Vitamin D Deficiency N Respiratory Disease - Other (Not COPD /a sthma) N Endometriosis Y Hyperthyroidism - Elevated thyroid N End Stage Renal Disease (Dialysis) N Malignant Hyperthermia due to Anesthesia N Transient Ischemic Attack (TIA) History N Kidney/Urinary Tract Disease - Other N Gonorrhea - Personal History N Parkinson's Disease N Impaired Vision (Corrected glasses/conta cts/surgery) Y Chronic Interstitial Cystitis (Bladder P ain) N Other Cancer - List Primary Site Y Syphilis - Personal History N Deaf or Hearing Loss N Genetic susceptibilty to cancer N Other Endocrine Disorder N Dysplasia, Cervical - Personal History Y DVT (Blood clot) - Personal History N Uterine and/or Vaginal Prolapse N Eczema N History of Anaphylactic Reaction N Ulcerative colitis N Epilepsy N Vulvar Dystrophy / Lichen Sclerosis N Peptic ulcer N Other Gynecology Problem N Gynecological History Statement/Question Response Attempting ? N Planning in next year? N Any sexual concerns or problems? N Sexual orientation Heterosexual If Post Menopausal, Age at Menopause 52 Are you sexually active? Yes Sexually Transmitted Disease Risk? Longt erm monogamous relationship Number of lifetime sexual partners 5 or less Age at Menarche 14 Age at First Child 31 Obstetrics History GPAL:G 2 P 2 0 0 2 Type Value Full Term 2 Living 2 Total 2 Immunizations Vaccine Type Date Status Note Provider Sidney lozano and Address Organization Details Recorded Time Tdap 07/30/2009 completed DELICIA Yang - [employer], [facility] 02/27/2012 09:56:00 Past Encounters Encounter ID Performer Location Encounter Start Date Encounter Closed Date Diagnosis/Indication Diagnosis SNOMED-CT Code Diagnosis ICD10 Code Diagnosis Note [id number] Alyssa Bobby MD [facility] [address] [facility] ,[address] [place] [address] 03/18/2012 14:52:24 03/18/2012 18:27:38 Health Concerns Section Related Observation LastModified by Organization Detai ls LastModified Time None Recorded Concern Status LastModified by Organization Details LastModified Time None Recorded Advance Directives Directive N: Payers Insurance Date Sequence Insurance Name Policy Number Policy Abreu Covered Member ID Abreu Member ID Guarantor Name 03/14/2014 1 [employer] AND PIP[employer]ITTERS [employer] FUND - OPEN ACCESS III (HMO/PPO) [id number] Doug Sinclair [id number] Analisa Sinclair OBGyn Episode Ob Episode Information Episode Created Date Number of Fetuses Patient Bloodtype Patient rh Status Prepregnancy Weight lbs Domestic Partner Domestic Partner Phone Father Name Travel Coordinator Status 02/27/20 12 1 CLOSED Fetus Data First Name Last Name Admitted to NICU Weight (g) Sex Living Outcome Pediatric Complications Fetus ID Race Codes Race Delivery Type 2834.95 F Full Term 5039 Vaginal Sameer Calculation Initial Sameer Date Initial Exam Date Initial Exam Provider Initial Ultrasound Date Last Menstrual Period Date Ultra Sound Weeks Gestation 0 Eighteen To Twenty Week Sameer Update Ultra Sound Date Fundal Height At Umbil Quickening Date Ultra Sound Latest Weeks Gestation Final Sameer Confirmed By Final Sameer Confirmed Date Final Sameer Date Ultra Sound Latest Days Gestation 0 0 Menstrual History Last Menstrual Date Menses Monthly On Bcp Conception Prior Menses Frequency Hcg Plus Date Menarche Onset Age Delivery Information Delivery Date Delivery Type Labor Anesthesia Weeks Gestation Incision Type Labor Labor Length Hrs Delivered By Post Complications Tubal Sterilization Discharge Date Comments 07/30/199 0 40 Discharge Information Feeding Method Contraceptive Method Maternal HG B and HCT Levels Ob Episode Information Episode Created Date Number of Fetuses Patient Bloodtype Patient rh Status Prepregnancy Weight lbs Domestic Partner Domestic Partner Phone Father Name Travel Coordinator Status 02/27/20 12 1 CLOSED Fetus Data First Name Last Name Admitted to NICU Weight (g) Sex Living Outcome Pediatric Complications Fetus ID Race Codes Race Delivery Type 2893.91 696 F Full Term 5040 Vaginal Sameer Calculation Initial Sameer Date Initial Exam Date Initial Exam Provider Initial Ultrasound Date Last Menstrual Period Date Ultra Sound Weeks Gestation 0 Eighteen To Twenty Week Sameer Update Ultra Sound Date Fundal Height At Umbil Quickening Date Ultra Sound Latest Weeks Gestation Final Sameer Confirmed By Final Sameer Confirmed Date Final Sameer Date Ultra Sound Latest Days Gestation 0 0 Menstrual History Last Menstrual Date Menses Monthly On Bcp Conception Prior Menses Frequency Hcg Plus Date Menarche Onset Age Delivery Information Delivery Date Delivery Type Labor Anesthesia Weeks Gestation Incision Type Labor Labor Length Hrs Delivered By Post Complications Tubal Sterilization Discharge Date Comments 6 40 Discharge Information Feeding Method Contraceptive Method Maternal HG B and HCT Levels
--- OUTSIDE RECORDS SUMMARY | 2025-02-03 15:06 | XMS_ITS | Encounter Summary ---
Author Organization [facility] Address 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 Gender Identity Not on file Sexual Orientation [...] PM CDT Narrative 10/16/2008 8:37 AM CDT [address] [address] Admit Date: 10/14/2008 ANALISA SINCLAIR Sex: F Admit Prov: Date: 1955 Primary Care Prov: CMRN: [id number] [facility] [address] [place] [address] IMAGING SERVICES Ordering Prov: CHAU CHUNG Accession Number: [id number] Interpretation BILATERAL SCREENING MAMMOGRAM 10/14/08 Reason for [...] Olsen MD - 10/16/2008 [facility] [address] [place], [place] [address] Admit Date: 10/14/2008 ANALISA SINCLAIR Sex: F Admit Prov: Date: 1955 Primary Care Prov: CMRN: [id number] Room: [facility] SSN: [id number] IMAGING SERVICES Ordering Prov: CHAU CHUNG Interpretation [...] OLSEN 10/16/2008 08:36 Transcribed: 10/16/2008 07:[facility] Final Result documented in this encounter Visit Diagnoses Diagnosis Other screening mammogram documented in this encounter
--- OUTSIDE RECORDS SUMMARY | 2025-02-03 15:06 | XMS_ITS | Clinical Summary ---
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
--- OUTSIDE RECORDS SUMMARY | 2025-02-03 15:06 | XMS_ITS | Encounter Summary ---
Author Organization [facility] Address [address] [place] [id number] Care Team Providers Care Nurse Intern Name Role Phone Linnette Chadwick MD Primary Care Provider + Encounter Details Date Type Department Care Team (Late Contact Info) Description 01/02/2025 Results Follow-Up [address] [place] [phone] Linnette Chadwick MD [address] [facility] [address] [place] [phone] TSH W/REFLEX Social History Tobacco Use Types Packs/Day Years Used Date Smoking Tobacco: Every Day Cigarettes 0.9 52.5 Started: 1970 Passive Smoke Exposure: Never Smokeless Tobacco: Never Alcohol Use Standard Drinks/Week Comments Yes 0 (1 standard drink = 0.6 oz pur e alcohol) socially PHQ-2 Answer Date Recorded Patient Health Questionnaire-2 Score 0 10/21/2024 Comments No Sex and Gender Information Value Date Recorded Sex Assigned at Not on file 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 Gender Identity Not on file Sexual Orientation Not on file documented as of this encounter Plan of Treatment Upcoming Encounters Date Type Department Care Team (Late Contact Info) Description 04/28/2025 1:20 PM CDT Office Visit [address] [place] [phone] Linnette Chadwick MD [address] [facility] [address] [place] [phone] documented as of this encounter Visit Diagnoses Not on filedocumented in this encounter Additional Health Concerns Assessment Noted Time PHQ-9 Depression Total Score: 2 08/20/19 25 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
--- OUTSIDE RECORDS SUMMARY | 2025-02-03 15:06 | XMS_ITS | Data Portability ---
Author Organization [facility], Main Office Address [address] [place] [address] Assessment No assessment recorded. Plan of Treatment Reminders Order Date Submit Date Provider Last Modified By Organization Details Last Modified Time Details Appointments None recorded. Lab magnesium, serum or plasma [address] (Lab), [address] [place], [address], 4 07:56:41 CMP, serum or plasma 2023 024 [facility] (Lab), [address] [place], [address], 4 21:25:29 lipid panel, serum 2023 024 YASSINE Not available 4 20:56:45 hepatic function panel, serum 2023 YASSINE Not available 4 20:56:50 BMP, serum or plasma 2023 YASSINE Not available 4 20:56:40 vitamin D3, 25-hydroxy, serum 2023 YASSINE Not available 4 10:20:40 CBC w/ auto diff 2023 YASSINE Not available 4 19:45:20 TSH, serum or plasma 2023 YASSINE Not available 4 21:20:04 T4, free, serum 2023 MAY Not available 21:09:56 Referral None recorded. Procedures None recorded. Surgeries None recorded. Imaging LDCT, chest, for lung cancer screening - *Please call pt to schedule* 2023 024 [facility] (Imaging), [address] [facility] [address] [place] [address], [address], 4 12:30:47 DEXA - *Please call pt to schedule* [email or web address] [place] [address] (Imaging), [address] [facility] [address], [place], [address], 4 09:52:09 Medication Orders prednisone 20 mg tablet 2023 024 [id number], [address] [facility], [place], [place], [id number], 4 11:04:14 amoxicillin 875 mg-potassiu m clavulanate 125 mg tablet 2023 024 [facility] #[id number], [address] [facility], [place], [place], [id number], 4 11:04:13 losartan 100 mg-hydrochl orothiazide 25 mg tablet 2023 024 [facility] [employer] #[id number], [address] [facility], [place], [place], [id number], 4 16:16:17 Patient TargetsNo targets recorded. Patient Instructions Encounter Date Encounter Id Patient Instructions Last Modified By Organization Details Last Modified Time 11/13/2023 [id number] Personalized [facility] Plan and Screening Recommendations Advance Directives - [...] of this year Chronic Disease Risks Stroke: Active diagnosis, Continue current treatment plan Heart Attack: Active diagnosis, Continue current treatment plan Clogging of the Arteries: Active diagnosis, Continue current treatment plan Diabetes: Active diagnosis, Continue current treatment plan Secondary Prevention/Interven tion (detects treatable diseases before they may cause symptoms, disability, or ) Breast Cancer Screening with mammogram: Cervical/Uterine/Ov tolu Cancer Screening: Osteoporosis Screening: Date Screening Last Performed: Colon Cancer Screening: Date Screening Last Performed: Eye Disease Screening: Your next exam in: Dementia Risk: Depression Screening: Active diagnosis, Continue current treatment plan Not available 11/13/2023 11:41:56 Reason for Referral None Reported. Results Created Date Observation Date Name Description Value Unit Range Abnormal Flag Note LastModifiedBy Organization Detail LastModifiedTime 11/13/19 24 11/13/2023 CBC/C OMPLE TE BLD COUNT W/DIF F white blood cells 6.8 x10'3 /uL 4.2-10 .8 Not Available [facility] (Lab) [address] [place], [address], 11/13/2023 19:45:20 11/13/19 24 11/13/2023 CBC/C OMPLE TE BLD COUNT W/DIF F red blood cells 4.52 x10'6 /uL 3.80-5 .20 Not Available [facility] (Lab) [address] [place], [address], 11/13/2023 19:45:20 11/13/19 24 11/13/2023 CBC/C OMPLE TE BLD COUNT W/DIF F hemoglobin 14.3 g/dL 12.0-1 5.6 Not Available [facility] (Lab) [address] [place], [address], 11/13/2023 19:45:20 11/13/19 24 11/13/2023 CBC/C OMPLE TE BLD COUNT W/DIF F hematocrit 42.2 % 35.7-4 5.7 Not Available [facility] (Lab) [address] [place], [address], 11/13/2023 19:45:20 11/13/19 24 11/13/2023 CBC/C OMPLE TE BLD COUNT W/DIF F mean red cell volume 93.4 fL 82.0-9 9.0 Not Available [facility] (Lab) [address] [place], [address], 11/13/2023 19:45:20 11/13/19 24 11/13/2023 CBC/C OMPLE TE BLD COUNT W/DIF F mean red cell hemoglobin 31.6 pg 27.0-3 3.0 Not Available [facility] (Lab) [address] [place], [address], 11/13/2023 19:45:20 11/13/19 24 11/13/2023 CBC/C OMPLE TE BLD COUNT W/DIF F mean RBC HGB concentratio n 33.9 g/dL 31.0-3 6.0 Not Available [facility] (Lab) [address] [place], [address], 11/13/2023 19:45:20 11/13/19 24 11/13/2023 CBC/C OMPLE TE BLD COUNT W/DIF F red cell distribution width 12.8 % 11.8-1 5.5 Not Available [facility] (Lab) [address] [place], [address], 11/13/2023 19:45:20 11/13/19 24 11/13/2023 CBC/C OMPLE TE BLD COUNT W/DIF F platelets 310 x10'3 /uL 150-40 0 Not Available [facility] (Lab) [address] [place], [address], 11/13/2023 19:45:20 11/13/19 24 11/13/2023 CBC/C OMPLE TE BLD COUNT W/DIF F mean platelet volume 9.5 fL 9.0-12 .4 Not Available [facility] (Lab) [address] [place], [address], 11/13/2023 19:45:20 11/13/19 24 11/13/2023 CBC/C OMPLE TE BLD COUNT W/DIF F neutrophils 64.8 % 39.0-7 2.0 Not Available [facility] (Lab) [address] [place], [address], 11/13/2023 19:45:20 11/13/19 24 11/13/2023 CBC/C OMPLE TE BLD COUNT W/DIF F lymphocytes 27.5 % 16.0-4 7.0 Not Available [facility] (Lab) [address] [place], [address], 11/13/2023 19:45:20 11/13/19 24 11/13/2023 CBC/C OMPLE TE BLD COUNT W/DIF F monocytes 5.5 % 5.0-12 .0 Not Available [facility] (Lab) [address] [place], [address], 11/13/2023 19:45:20 11/13/19 24 11/13/2023 CBC/C OMPLE TE BLD COUNT W/DIF F eosinophils 1.2 % 1.0-7. 0 Not Available [facility] (Lab) [address] [place], [address], 11/13/2023 19:45:20 11/13/19 24 11/13/2023 CBC/C OMPLE TE BLD COUNT W/DIF F basophils 0.6 % 0.0-2. 0 Not Available [facility] (Lab) [address] [place], [address], 11/13/2023 19:45:20 11/13/19 24 11/13/2023 CBC/C OMPLE TE BLD COUNT W/DIF F immature granulocytes 0.4 % 0.00-0 .50 Not Available [facility] (Lab) [address] [place], [address], 11/13/2023 19:45:20 11/13/19 24 11/13/2023 CBC/C OMPLE TE BLD COUNT W/DIF F neutrophils, absolute count 4.39 x10'3 /uL 1.5-8. 0 Not Available [facility] (Lab) [address] [place], [address], 11/13/2023 19:45:20 11/13/19 24 11/13/2023 CBC/C OMPLE TE BLD COUNT W/DIF F lymphocytes, absolute count 1.86 x10'3 /uL 1.07-3 .43 Not Available [facility] (Lab) [address] [place], [address], 11/13/2023 19:45:20 11/13/19 24 11/13/2023 CBC/C OMPLE TE BLD COUNT W/DIF F monocytes, absolute count 0.37 x10'3 /uL 0.29-0 .99 Not Available [facility] (Lab) [address] [place], [address], 11/13/2023 19:45:20 11/13/19 24 11/13/2023 CBC/C OMPLE TE BLD COUNT W/DIF F eosinophils, absolute count 0.08 x10'3 /uL 0.02-0 .53 Not Available [facility] (Lab) [address] [place], [address], 11/13/2023 19:45:20 11/13/19 24 11/13/2023 CBC/C OMPLE TE BLD COUNT W/DIF F basophils, absolute count 0.04 x10'3 /uL 0.01-0 .08 Not Available [facility] (Lab) [address] [place], [address], 11/13/2023 19:45:20 11/13/19 24 11/13/2023 CBC/C OMPLE TE BLD COUNT W/DIF F immature granulocytes ,absolute 0.03 x10'3 /uL 0.00-0 .05 Not Available [facility] (Lab) [address] [place], [address], 11/13/2023 19:45:20 11/13/19 24 11/13/2023 CBC/C OMPLE TE BLD COUNT W/DIF F nucleated red blood cells 0.0 % -0 Not Available [facility] (Lab) [address] [place], [address], 11/13/2023 19:45:20 11/13/19 24 11/13/2023 CBC/C OMPLE TE BLD COUNT W/DIF F NRBC# 0.00 x10'3 /uL Not Available [facility] (Lab) [address] [place], [address], 11/13/2023 19:45:20 11/13/19 24 11/13/2023 BASIC METAB OLIC PANEL sodium 138 mmol/ L 137-14 5 Not Available [facility] (Lab) [address] [place], [address], 11/13/2023 20:56:40 11/13/19 24 11/13/2023 BASIC METAB OLIC PANEL potassium 4.0 mmol/ L 3.5-5. 1 Not Available [facility] (Lab) [address] [place], [address], 11/13/2023 20:56:40 11/13/19 24 11/13/2023 BASIC METAB OLIC PANEL chloride 111 mmol/ L 98-107 high Not Available [facility] (Lab) [address] [place], [address], 11/13/2023 20:56:40 11/13/19 24 11/13/2023 BASIC METAB OLIC PANEL carbon dioxide 20 mmol/ L 22-30 low Not Available [facility] (Lab) [address] [place], [address], 11/13/2023 20:56:40 11/13/19 24 11/13/2023 BASIC METAB OLIC PANEL anion gap 11.0 mmol/ L 14-22 low Not Available [facility] (Lab) [address] [place], [address], 11/13/2023 20:56:40 11/13/19 24 11/13/2023 BASIC METAB OLIC PANEL glucose 99 mg/dL 70-99 Not Available [facility] (Lab) [address] [place], [address], 11/13/2023 20:56:40 11/13/19 24 11/13/2023 BASIC METAB OLIC PANEL BUN 16 mg/dL 8-19 Not Available [facility] (Lab) [address] [place], [address], 11/13/2023 20:56:40 11/13/19 24 11/13/2023 BASIC METAB OLIC PANEL creatinine 0.67 mg/dL 0.66-1 .25 Not Available [facility] (Lab) [address] [place], [address], 11/13/2023 20:56:40 11/13/19 24 11/13/2023 BASIC METAB OLIC PANEL GFR >60 Refer ence Range : [place] ge GFR Healt hy Adult : >60 [...] calcu lator is avail able on the [facility] websi te: https ://ww w.kid susi.o rg/pr ofess ional s/kdo qi/gf r_cal culat or Not Available [facility] (Lab) [address] [place], [address], 11/13/2023 20:56:40 11/13/19 24 11/13/2023 BASIC METAB OLIC PANEL calcium 9.8 mg/dL 8.4-10 .2 Not Available [facility] (Lab) [address] [place], [address], 11/13/2023 20:56:40 11/13/19 24 11/13/2023 LIPID PANEL cholesterol 246 mg/dL 140-19 9 high NIH SAMREEN NSUS RECOM MENDA TION FOR MAKENNA STERO L: ADULT CHILD LOW RISK: <200 <170 BORDE RLINE : <200- 239 ----- HIGH RISK: >240 >200 Not Available [facility] (Lab) [address] [place], [address], 11/13/2023 20:56:45 11/13/19 24 11/13/2023 LIPID PANEL triglyceride s 136 mg/dL 0-150 NIH SAMREEN NSUS REPOR T RECOM MENDA TION FOR TRIGL YCERI SANTIAGO: ADULT CHILD LOW RISK: <150 ----- BODER LINE: 150-1 99 ----- HIGH RISK: >200 ----- Not Available [facility] (Lab) [address] [place], [address], 11/13/2023 20:56:45 11/13/19 24 11/13/2023 LIPID PANEL HDL cholesterol 80 mg/dL 40- Not Available [facility] (Lab) [address] [place], [address], 11/13/2023 20:56:45 11/13/19 24 11/13/2023 LIPID PANEL [...] WILL NOT BE REPOR GAURAV. Not Available [facility] (Lab) [address] [place], [address], 11/13/2023 20:56:45 11/13/19 24 11/13/2023 HEPAT IC/LI NATASHA PANEL alkaline phosphatase 60 U/L 38-126 Not Available [facility] (Lab) [address] [place], [address], 11/13/2023 20:56:50 11/13/19 24 11/13/2023 HEPAT IC/LI NATASHA PANEL alanine aminotransfe rase 17 U/L 0-35 Not Available [facility] (Lab) [address] [place], [address], 11/13/2023 20:56:50 11/13/19 24 11/13/2023 HEPAT IC/LI NATASHA PANEL aspartate aminotransfe rase 28 U/L 15-37 Not Available [facility] (Lab) [address] [place], [address], 11/13/2023 20:56:50 11/13/19 24 11/13/2023 HEPAT IC/LI NATASHA PANEL bilirubin, total 0.50 mg/dL 0.20-1 .30 Not Available [facility] (Lab) [address] [place], [address], 11/13/2023 20:56:50 11/13/19 24 11/13/2023 HEPAT IC/LI NATASHA PANEL bilirubin, conjugated (direct) 0.00 mg/dL 0.00-0 .30 Not Available [facility] (Lab) [address] [place], [address], 11/13/2023 20:56:50 11/13/19 24 11/13/2023 HEPAT IC/LI NATASHA PANEL biliurubin,u ncong. (indirect) 0.30 mg/dL 0.00-1 .1 Not Available [facility] (Lab) [address] [place], [address], 11/13/2023 20:56:50 11/13/19 24 11/13/2023 HEPAT IC/LI NATASHA PANEL total protein 7.2 g/dL 6.3-8. 2 Not Available [facility] (Lab) [address] [place], [address], 11/13/2023 20:56:50 11/13/19 24 11/13/2023 HEPAT IC/LI NATASHA PANEL albumin 4.4 g/dL 3.0-4. 4 Not Available [facility] (Lab) [address] [place], [address], 11/13/2023 20:56:50 11/13/19 24 11/13/2023 HEPAT IC/LI NATASHA PANEL globulin 2.8 g/dL 2.6-4. 2 Not Available [facility] (Lab) [address] [place], [address], 11/13/2023 20:56:50 11/13/19 24 11/13/2023 HEPAT IC/LI NATASHA PANEL A/G ratio 1.6 ratio 1.0-2. 0 Not Available [facility] (Lab) [address] [place], [address], 11/13/2023 20:56:50 11/13/1911/13/2023 T4 FREE free T4 0.75 NG/dL 0.78-2 .19 low Not Available [facility] (Lab) [address] [place], [address], 11/13/2023 21:09:56 11/13/19 24 11/13/2023 TSH thyroid-stim ulating hormone 5.200 uIU/m L 0.465- 4.680 high Not Available [facility] (Lab) [address] [place], [address], 11/13/2023 21:20:04 11/13/19 24 11/22/2023 25-HY DROXY VITAM IN D LCMS D2+D3 25-hydroxy, vitamin D 62 NG/mL Refer ence Range : All Ages: Targe t level s 30 - 100 Not Available [facility] (Lab) [address] [place], [address], 11/22/2023 10:12:24 11/13/19 24 11/22/2023 25-HY DROXY VITAM IN D LCMS D2+D3 25-hydroxy, vitamin D-2 <1.0 NG/mL This test was devel oped and its perfo rmanc e clyde cteri stics deter mined by [employer]. It has not been clear ed or appro adan by the Food and Drug Admin istra tion. Not Available [facility] (Lab) [address] [place], [address], 11/22/2023 10:12:24 11/13/19 24 11/22/2023 25-HY DROXY VITAM IN D LCMS D2+D3 25-hydroxy, vitamin D-3 62 NG/mL This test was devel oped and its perfo rmanc e clyde cteri stics deter mined by [employer] [facility]. It has not been clear ed or appro adan by the Food and Drug Admin istra tion. Perfo rmed at: [facility] [employer] [address] [place] [address] Lab Direc tor: Orlando meyers MD, Phone : [phone] Not Available [facility] (Lab) [address] [facility], [place], [address], 11/22/2023 10:12:24 10/25/19 23 10/23/2022 LDCT, chest , for lung cance r scree lencho No observ ation record ed. [email or web address] [place] [address] [address], [place], [address], 10/24/2022 10:10:56 11/23/19 24 11/22/2023 MAMMO , scree lencho, digit al, bilat eral No observ ation record ed. [email or web address] [facility] [address], [place], [address], 12/03/2023 10:13:18 11/23/19 24 11/23/2023 LDCT, chest , for lung cance r scree lencho No observ ation record ed. [email or web address] [address], [place], [address], 12/03/2023 10:13:19 Result Notes None recorded. Problems Name Problem SNOMED Code Status Onset Date Resolution Date Notes Provider Name and Address Organization Details Recorded Time Hypertensive disorder 63616408 Active 2020 Not Available [employer] 3 00:49:03 Pain of hip region 55899793 Active Not Available [facility] 3 00:49:03 Smoker 08708395 Active 2023 Paris Cruz MD [address], [facility] [address], [place], [address] , [facility] [employer] [facility] 4 11:28:14 Essential hypertension 58001331 Active 2023 Paris Cruz MD [address], [place] [address], [place], [address] , [facility] [employer] [facility] [employer] [facility] 4 11:31:56 Vitamin D deficiency 33323614 Active 2023 Paris Cruz MD [address] [facility], [place] [address], [place], [address] , [facility] [employer] [facility] [employer] [facility] 4 11:32:39 Hypothyroidism 55690121 Active 2023 Paris Cruz MD [address], [place] [address], [place], [address] , [facility] [employer] [facility] [employer] [facility] 4 11:32:52 Hyperlipidemia 76423801 Active 2023 Paris Cruz MD [address], [place] [address], [place], [address] , [facility] [employer] [facility] [employer] [facility] 4 11:34:12 Acute sinusitis 15323224 Active 2023 ZOILA Garza [address] [facility], [place] [address], [place], [address] , [facility] [employer] [facility] [employer] [facility] 4 12:44:05 Problem Notes None recorded. Procedures Surgical History Date Name Laterality Status Provider Name and Address Organization Details Recorded Time 11/13/19 24 Medicare Wellness CPT Code, subsequent completed Amanda Richard RN [facility] 11/13/2023 11:07:22 09/03/19 21 colonoscopy completed Not Available [facility] 09/28/19 23 00:44:40 Imaging Results None recorded. Procedure Notes None [...] losartan 100 mg-hydrochl orothiazide 25 mg tablet Take 1 tablet(s) every day by oral route for 90 days. active Not Available Not Available No t [...] No t Available Vitals Date Recorded Body mass index (BMI) Body height Oxygen saturation Oxygen saturation in Arterial blood by Pulse oximetry Heart rate Body temperature Body weight Systolic And Diastolic Provider Name and Address Organization Details Last Updated DateTime 3 28.3 kg/m2 160.02 cm 98 % 98 % 76 /min 97.2 [degF] 90655.7 8 g 138/92 mm[Hg] Not Available [facility] 3 00:46:35 Date Recorded Systolic And Diastolic Provider Name and Address Organization Details Last Updated DateTime 11/13/2023 138/74 mm[Hg] Paris Cruz MD [address], [facility] [address], [place], [address], [facility] [employer] 11/13/2023 11:41:27 Date Recorded Body weight Body temperature Heart rate Oxygen saturation Oxygen saturation in Arterial blood by Pulse oximetry Provider Name and Address Organization Details Last Updated DateTime 4 86903.1 9 g 98.2 [degF] 79 /min 97 % 97 % Amanda Richard RN [facility] [employer] 4 11:09:43 Date Recorded Body weight Body mass index (BMI) Body height Body temperature Heart rate Oxygen saturation Oxygen saturation in Arterial blood by Pulse oximetry Systolic And Diastolic Systolic And Diastolic Provider Name and Address Organization Details Last Updated DateTime 4 23167.3 7 g 28.5 kg/m2 160.02 cm 97.8 [degF] 80 /min 98 % 98 % 198/102 mm[Hg] 190/100 mm[Hg] Olivia Smith RN [facility] [employer] 4 08:38:24 Date Recorded Body mass index (BMI) Body height Oxygen saturation Oxygen saturation in Arterial blood by Pulse oximetry Heart rate Body temperature Body weight Systolic And Diastolic Provider Name and Address Organization Details Last Updated DateTime 1 28.3 kg/m2 160.02 cm 98 % 98 % 72 /min 98.1 [degF] 13647.7 8 g 148/88 mm[Hg] Not Available [facility] 3 00:46:35 Date Recorded Body height Body mass index (BMI) Body weight Body temperature Heart rate Oxygen saturation Oxygen saturation in Arterial blood by Pulse oximetry Systolic And Diastolic Provider Name and Address Organization Details Last Updated DateTime 4 160.02 cm 27.8 kg/m2 45482 g 98.5 [degF] 77 /min 97 % 97 % 154/90 mm[Hg] Olivia Smith RN [facility] [employer] 4 14:42:55 Social History Question Answer Notes LastModified by Organizat ion Details LastModified Time Tobacco Smoking Status Current Every Day Smoker 1/2 pack per day smoking since 16 Not Available [facility] 09/27/2022 00:43:37 In The 14 Days Before Symptom Onset, Have You Had Close Contact With A Laboratory-confir med COVID-19 While That Case Was Ill? No [id number] Information not available 09/27/2022 In The 14 Days Before Symptom Onset, Have You Had Close Contact With A Person Who Is Under Investigation For COVID-19 While That Person Was Ill? No [id number] Information not available 09/27/2022 What Was The Date Of Your Most Recent Tobacco Screening? 11/13/2023 Information not available 11/13/2023 Sex: Unknown Functional Status None recorded. Mental Status None recorded. Family History Relationship Description Onset Age of this Age Resolved Age Notes LastModified by Organization Details LastModified Time Mother Aneurysm brain [id number] Not available 09/27/2022 00:44:44 Father Diabetes mellitus [id number] Not available 09/27/2022 00:44:44 Father Heart disease [id number] Not available 09/27/2022 00:44:44 Medical History No medical history recorded. Gynecological HistoryNo gynecological history recorded. Obstetrics History GPAL:G 0 P 0 0 0 0 Immunizations Vaccine Type Date Status Note Provider Nam e and Address Organization Details Recorded Time SARS-COV-2 (COVID-19) vaccine, UNSPECIFIED completed Not Available [facility] 09/27/2022 00:53:32 Past Encounters Encounter ID Performer Location Encounter Start Date Encounter Closed Date Diagnosis/Indication Diagnosis SNOMED-CT Code Diagnosis ICD10 Code Diagnosis Note [id number] Paris [facility] MD [facility] carol ann [address] [place] [address] [address] [place] [address] 10/05/2020 00:00:00 10/05/2020 15:18:03 [id number] [facility] [address] [facility] [address] [place] [address] 01/04/2021 00:00:00 01/25/2021 18:10:51 [id number] [facility] [address] [facility] [address] [address] 08/08/2022 00:00:00 08/23/2022 18:23:12 [id number] Paris Cruz MD [facility] Primary Care [address] [place] [address] 11/13/2023 11:05:18 11/13/2023 11:55:26 Adult health examination 705873250 Z00.00 Z13.1 Mammogram order given DEXA order given Fasting labs ordered Recommend shingles vaccine Flu, covid and pneumonia vaccines recommende d Pap normal 2020 Colonoscop y done 09/03/20 repeat 5 years Postmenopausal state 764 10728 Z78.0 Smoker 01687358 F17.210 work on smoking cessation Essential hypertension 48169375 I10 Vitamin D deficiency 347 52982 E55.9 Hypothyroidism 39591145 E03.9 Hyperlipidemia 06159357 E78.5 [id number] Paris Cruz MD [facility] Primary Care [address] [address] 12/14/2023 08:11:24 12/14/2023 08:48:13 Acute sinusitis 96943389 J01.90 -has been dealing with symptoms since November 21-still having sinus congestion , decreased hearing-fi nished zpack without resolution -has been using flonase and carmela-tr ial amox-clav, prednisone Essential hypertension 30185768 I10 -bp currently 198/102, some CEDILLO lately, no cp/sob-cur rently takes losartan 100mg, took shortly before coming to appt this am-approx 4 bottles of water/day- takes multivitam in-labs obtained-t rial losartan/h ctz [id number] ZOILA Garza [facility] Primary Care [address] [place] [address] 01/16/2024 14:34:40 01/16/2024 15:10:01 Essential hypertension 69069073 I10 01-16-24-bp currently 154/90, 77-checks bp occ [...] Recorded Advance Directives Directive None Recorded Payers Insurance Date Sequence Insurance Name Policy Number Policy Abreu Covered Member ID Abreu Member ID Guarantor Name 11/13/2024 1 [facility] (MEDICARE REPLACEMENT/A DVANTAGE - PPO) [id number] Analisa Stephens Dottie [id number] Analisa A Dottie Notes Date Note Type Note Provider Name and Address Organization Details Recorded Time 11/13/2023 text/html Here for wellness examno chest pain or sob Paris Cruz MD [address] [facility], [place] [address], [place], [id number], Monitor 12/16/2023 17:30:26 12/14/2023 text/html pt is here for sinus infection ZOILA Garza [address] [facility], [place] [address], [place], [address], [employer] 12/14/2023 11:10:11 01/16/2024 text/html Pt is here for bp f/u ZOILA Garza [address] [facility], [place] [address], [place], [address], Monitor 01/24/2024 09:05:00 OBGyn Episode No OBEpisode recorded.
--- OUTSIDE RECORDS SUMMARY | 2025-02-03 15:06 | XMS_ITS | Clinical Summary ---
Author Organization [facility] Address [facility] [place] [address] Care Team Providers Care Paperhanger And Painter Name Role Phone Linnette Chadwick MD Primary Care Provider + Allergies No known active allergies Medications acetaminophen-code ine (TYLENOL #3) 300-30 MG tablet 5 Active varenicline (CHANTIX CONTINUING MONTH CIERRA) 1 MG tabletIndications: Smoker Take 1 tablet (1 mg total) by mouth 2 (two) times daily. 180 tablet 1 5 04/19/20 25 Active hydroCHLOROthiazid e (MICROZIDE) 12.5 MG capsuleIndications :Essential hypertension Take 1 capsule (12.5 mg total) by mouth every morning. 90 capsule 3 5 10/22/19 26 Active losartan (COZAAR) 100 MG tabletIndications: Essential hypertension Take 1 tablet (100 mg total) by mouth daily. 90 tablet 3 5 10/22/19 26 Active levothyroxine (SYNTHROID) 50 MCG tabletIndications: Acquired hypothyroidism Take 1 tablet (50 mcg total) by mouth every morning. 90 tablet 1 5 Active levothyroxine (SYNTHROID) 50 MCG tabletIndications: Acquired hypothyroidism TAKE 1 TABLET(50 MCG) BY MOUTH EVERY MORNING 90 tablet 1 5 01/15/20 25 Discontin ued(Reord er) Active Problems Problem Noted Date Diagnosed Date [...] agreeable. Assessment & Plan (08/20/2024 3:14 PM ELASTIC TAPE INSERTER): Not controlled. Patient prefers not to add additional medication. Recommend continue losartan and make lifestyle changes. Follow-up in 1 month to determine whether additional medication is needed. History of cervical dysplasia 08/20/2024 Overview (08/20/2024): Had one with Dr. Cruz, [place] Bobby ([place]) Assessment & Plan (08/20/2024 3:15 PM ELASTIC TAPE INSERTER): Patient is agreeable to a repeat Pap [...] daily. Assessment & Plan (08/20/2024 3:16 PM ELASTIC TAPE INSERTER): Will check TSH with reflex T4 to confirm whether she requires levothyroxine. Mixed hyperlipidemia 11/13/2023 Overview (08/20/2024): ASCVD risk 21%. Assessment & Plan (08/20/2024 3:16 PM ELASTIC TAPE INSERTER): Discussed ASCVD risk and patient would like to quit smoking to reduce her risk. See below. Smoker 11/13/2023 Overview (08/20/2024): Has been smoking for 50 years averaging a pack per day. She would like to quit. Has not tried anything but patches in the past. Assessment & Plan (08/20/2024 3:16 PM ELASTIC TAPE INSERTER): Recommended trial of Chantix. She is agreeable. Vitamin D deficiency 11/13/2023 Assessment & Plan (08/20/2024 3:16 PM ELASTIC TAPE INSERTER): Will check vitamin D levels to confirm if this is resolved. 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..] on file Legal Sex Female 2:35 PM ELASTIC TAPE INSERTER Gender Identity Not on file Sexual Orientation Not on file Last Filed Vital Signs Vital Sign Reading Time Taken Comments Blood Pressure 138/88 10/21/2024 12:59 PM CDT Pulse 73 10/21/2024 12:59 PM CDT Temperature 36.9 C (98.5 F) 10/21/2024 12:59 PM CDT Respiratory Rate 16 08/20/2024 2:18 PM ELASTIC TAPE INSERTER Oxygen Saturation 98% 10/21/2024 12:59 PM CDT Inhaled Oxygen Concentration - - Weight 73.6 kg (162 lb 3.2 oz) 10/21/2024 12:59 PM CDT Height 160 cm (5' 3) 10/21/2024 12:59 PM CDT Body Mass Index 28.73 10/21/2024 12:59 PM CDT Plan of Treatment Upcoming Encounters Date Type Department Care Team (Late st Contact Info) Description 04/28/2025 1:20 PM CDT Office Visit [facility] Family Medicine - [place] [address] [place] [address] Linnette Chadwick MD [address] [place], [place] [id number] Health Maintenance Due Date Last Done Comments [...] Vaccine: 50+ Years Completed 08/20/2024 PHQ-2 (Physician [place]) Completed 10/21/2024 Meningococcal B Vaccine Aged Out [...] Diagnosis Comments COLLECTION VENOUS BLOOD VENIPUNCTURE Routine 01/01/2025 1:56 PM CDT Acquired hypothyroidism TSH W/REFLEX Routine 01/01/2025 1:56 PM CDT Acquired hypothyroidism CT GENERIC 11/22/2024 MAMMOGRAM GENERIC (SCAN ORDER) 11/22/2023 COLONOSCOPY GENERIC (SCAN ORDER) 09/03/2020 from Last 3 Months or Most Recently Relevant to Health Maintenance Results * TSH W/REFLEX (01/01/2025 1:56 PM CDT) TSH 2.317 0.358 - 3.740 uIU/ML 01/01/2025 7:42 PM CDT -[facility] 01/01/2025 1:56 PM CDT us Linnette Chadwick MD LABORATORY Final Re sult [facility] [address] [place] [address], [place] [phone] * CT GENERIC (11/22/2024) Anatomical Region Laterality Modality Other 11/22/2024 [facility] Scanned SCANNING Final Resu lt * MAMMOGRAM GENERIC (SCAN ORDER) (11/22/2023) Anatomical Region Laterality Modality Other 11/22/2023 [facility] Scanned SCANNING Final Resu lt * COLONOSCOPY GENERIC (SCAN ORDER) (09/03/2020) 09/03/2020 [facility] Scanned SCANNING Final Resu lt from Last 3 Months or Most Recently Relevant to Health Maintenance Insurance [facility] Care Teams Paperhanger And Painter Relationship Specialty Start Date End Date Linnette Chadwick MD [address] [place] [address] PCP - General FAMILY PRACTICE 08/20/24
== END 2025-02-03 15:02 | disposition home or self-care (01) ==
PROVIDERS: PCP Student in an Organized Health Care Education/Training Program; Visit Provider Student in an Organized Health Care Education/Training Program
DX: E28.39 Other primary ovarian failure (principal); Z78.0 Asymptomatic menopausal state
CPT/HCPCS: 77080

== ENCOUNTER 2025-03-18 14:22 | Outpatient (CLI) | payer MEDICARE, SELFPAY ==
--- NOTE | ~2025-03-18 | MM_ITS ---
EXAMINATION: MM screening xiang BI w ian HISTORY: Screening mammogram TECHNIQUE: Craniocaudal and mediolateral oblique 3-D tomosynthesis images were obtained and synthetic 2-D images were generated. CAD analysis was submitted and interpreted. COMPARISON: 11/22/2023 BREAST PARENCHYMAL COMPOSITION:Not Dense. There are scattered areas of fibroglandular density. FINDINGS: No suspicious mass, calcification, or architectural distortion are identified in either breast to suggest malignancy. There has been no suspicious interval change. IMPRESSION: No mammographic evidence of malignancy. Recommend routine screening mammography in one year. BI-RADS Category 1: Negative Reviewed, dictated and finalized at location .
--- OUTSIDE RECORDS SUMMARY | 2025-03-18 14:58 | XMS_ITS | Clinical Summary ---
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
--- OUTSIDE RECORDS SUMMARY | 2025-03-18 14:58 | XMS_ITS | Encounter Summary ---
Author Organization [facility] Address 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 Gender Identity Not on file Sexual Orientation [...] PM CDT Narrative 10/16/2008 8:37 AM CDT [address] [address] Admit Date: 10/14/2008 ANALISA SINCLAIR Sex: F Admit Prov: Date: 1955 Primary Care Prov: CMRN: [id number] [facility] [address] [place] [address] IMAGING SERVICES Ordering Prov: CHAU CHUNG Accession Number: [id number] Interpretation BILATERAL SCREENING MAMMOGRAM 10/14/08 Reason for [...] Procedure Note Marc Olsen MD - 10/16/2008 [facility] [address], [place] [address] Admit Date: 10/14/2008 ANALISA SINCLAIR Sex: F Admit Prov: Date: 1955 Primary Care Prov: CMRN: [id number] Room: [facility] SSN: [id number] IMAGING SERVICES Ordering Prov: CHAU CHUNG Interpretation [...] OLSEN 10/16/2008 08:36 Transcribed: 10/16/2008 07:26 [facility] M[facility] Final Result documented in this encounter Visit Diagnoses Diagnosis Other screening mammogram documented in this encounter
== END 2025-03-18 14:23 | disposition home or self-care (01) ==
LOC: ANHFOHIMG 14:27
PROVIDERS: PCP Student in an Organized Health Care Education/Training Program; Visit Provider Student in an Organized Health Care Education/Training Program
DX: Z12.31 Encounter for screening mammogram for malignant neoplasm of breast (principal)
CPT/HCPCS: 77063; 77067